=== PATIENT | female | born 1955 | race Caucasian/White ===

== ENCOUNTER 2017-08-05 00:39 | Emergency (ER) | payer BC ==
[~2017-08-05] VITALS: Ht 165.1 cm; Wt 93.0 kg
[2017-08-05] MEDS ORDERED: LISI20TA5 (00:59)
[2017-08-05] MEDS ORDERED: METFORMIN500 MG PO (01:02)
[2017-08-05] MEDS ORDERED: METFORMIN500 M2 PO (01:03)
[2017-08-05] MEDS ORDERED: CARVEDILOL25 MG PO (01:03)
[2017-08-05] MEDS ORDERED: SPIRONOLACTONE100 MG PO (01:04)
[2017-08-05] MEDS ORDERED: LASIX20 MG PO (01:05)
[2017-08-05] MEDS ORDERED: DIGOX125 MCG PO (01:05)
[2017-08-05] MEDS ORDERED: MAGNESIUM200 MG PO (01:06)
[2017-08-05] MEDS ORDERED: MULTIVITAMI9 PO (01:07)
[2017-08-05] MEDS ORDERED: COUMADIN6 MG PO ×2 (01:09→01:10)
[2017-08-05 02:00] LABS: HEMATOCRIT 43.5 % (37.0-47.0); HEMOGLOBIN 14.3 g/dl (12.0-16.0); IMMATURE GRANULOCYTES 0.4 % (0.0-1.0); MEAN CELL VOLUME 88.8 fL CALC (80.0-100.0); MEAN CORPUSCULAR HGB 29.2 pG CALC (26.0-32.0); MEAN CORPUSCULAR HGB CONC 32.9 g/L CALC (32.0-36.0); NEUT# 4.17 thou/uL (2.00-7.15); RED BLOOD COUNT 4.9 mill/uL (4.20-5.60); RED CELL DISTRI WIDTH 17.8 % (11.5-15.5)
[2017-08-05 02:20] LABS: ALBUMIN 3.7 g/dL (3.2-5.0); BILIRUBIN, TOTAL 1.4 mg/dL (0.0-1.4); CREATININE 1.4 mg/dL (0.5-1.0); POTASSIUM 4.1 mmol/l (3.5-5.1); TOTAL PROTEIN 6.7 g/dL (6.3-8.2)
[2017-08-05] MEDS ORDERED: CLINDAMYCIN300 M1 PO (05:09)
[2017-08-05 05:10] VITALS: BP 142/77
== END 2017-08-05 05:24 | disposition home or self-care (01) | DRG 301 ==
LOC: ED 00:39
PROVIDERS: Emergency Medicine
DX: I87.2 Venous insufficiency (chronic) (peripheral) (principal); I48.91 Unspecified atrial fibrillation; I10 Essential (primary) hypertension; R22.43 Localized swelling, mass and lump, lower limb, bilateral; Z79.01 Long term (current) use of anticoagulants

== ENCOUNTER 2020-09-16 20:18 | Observation (INO) | payer MEDICARE ==
[~2020-09-16] VITALS: Ht 165.1 cm; Wt 108.0 kg
[~2020-09-16 20:18] MED LIST: CARVEDILOL25 MG PO; CLINDAMYCIN300 M1 PO; COUMADIN6 MG PO; DIGOX125 MCG PO; LASIX20 MG PO; LISI20TA5; MAGNESIUM200 MG PO; METFORMIN500 M2 PO; METFORMIN500 MG PO; MULTIVITAMI9 PO; SPIRONOLACTONE100 MG PO
--- NOTE | 2020-09-16 20:20 | NUR ---
PT MOVED TO ROOM 10 BY EMS FOR TRIAGE
--- NOTE | 2020-09-16 20:21 | NUR ---
PT. TO ROOM 10 VIA EMS WITH C/O FEELING DIZZINESS STARTING YESTERDAY. SKIN WARM AND DRY TO TOUCH, COLOR WNL, RESP. EVEN AND UNLABORED. CRAFT ARTIST SHOWING A-FIB. NO C/O CP OR SOB OFFERED.
--- NOTE | 2020-09-16 20:55 | NUR ---
IV LOPRESSOR GIVEN PER MD ORDER.
[2020-09-16 21:01] LABS: HEMATOCRIT 40.6 % (37.0-47.0); HEMOGLOBIN 13.1 g/dl (12.0-16.0); IMMATURE GRANULOCYTES 0.8 % (0.0-5.0); MEAN CELL VOLUME 90.4 fL CALC (80.0-100.0); MEAN CORPUSCULAR HGB 29.2 pG CALC (26.0-32.0); MEAN CORPUSCULAR HGB CONC 32.3 g/dL CAL (32.0-36.0); NEUT# 15.18 thou/uL (2.00-7.15); RED BLOOD COUNT 4.49 mill/uL (4.20-5.60); RED CELL DISTRI WIDTH 13.2 % (11.5-15.5); URINE BILIRUBIN - DIPSTICK NEGATIVE (NEGATIVE); URINE BLOOD DIPSTICK LARGE (NEGATIVE); URINE COLOR YELLOW; URINE GLUCOSE - DIPSTICK NEGATIVE (NEGATIVE); URINE KETONE NEGATIVE (NEGATIVE); URINE PH 5.5 (4.5-8.0); URINE PROTEIN - DIPSTICK 100 mg/dL (NEG-TRACE); URINE SPECIFIC GRAVITY 1.025
[2020-09-16 21:02] LABS: URINE LEUK ESTERASE MODERATE (NEGATIVE); URINE NITRITE - DIPSTICK POSITIVE (Negative)
[2020-09-16 21:10] LABS: URINE BACTERIA MANY hpf; URINE WBC 20-50 WBC/hpf (0-5)
[2020-09-16 21:16] LABS: CREATININE 1.3 mg/dL (0.5-1.0); POTASSIUM 3.8 mmol/l (3.5-5.1)
[2020-09-16 21:19] LABS: ALBUMIN 4.5 g/dL (3.2-5.0); TOTAL PROTEIN 8.5 g/dL (6.3-8.2)
[2020-09-16 21:21] LABS: ACT PARTIAL THROMBO TIME 31.1 SECONDS (20.0-32.5); INTERNATIONAL NORMALIZED RATIO 1.9 RATIO (0.7-1.3); PROTHROMBIN TIME 19.4 SECONDS (9.0-12.5)
[2020-09-16 21:47] LABS: DIGOXIN 0.5 ng/mL (0.8-2.0)
--- NOTE | 2020-09-16 21:55 | NUR ---
HR REMAINS 108-115. MD AWARE.
[2020-09-16 22:01] LABS: TSH, 3RD GENERATION 1.24 uIU/mL (0.47 - 4.68)
--- NOTE | 2020-09-16 22:06 | NUR ---
IV LONOXIN GIVEN PER MD ORDER.
--- NOTE | 2020-09-16 22:21 | NUR ---
MD IN ROOM INFORMED PT. OF ADMISSION, VERBALIZED UNDERSTANDING.
--- NOTE | 2020-09-16 23:20 | NUR ---
Admission Note Report Given to: TIERNEY SOLIS Transported by: Wheelchair X Stretcher Transported with: X Nurse Transporter X Patent IV O2 Precipitate Washer Location: ICU X MS2
--- NOTE | 2020-09-16 23:20 | NUR ---
REPORT RECEIVED FROM ED NURSE. I ASKED THE ED NURSE IF THEY WERE BRINGING HER UP ON TELEMETRY DUE TO THE AFIB RVR UPON ARRIVING TO HOSPITAL EARLIER THIS EVENING AND CHF/XRAY RESULTS. I OBSERVED THE ED NURSE VERBALLY VIA PHONE TALKING TO ED PHYSICIAN REGARDING TELEMETRY, HE STATED "NO TELEMETRY." ED NURSE REPORTS HR IS CONTROLLED IN 70-80'S AT THIS TIME.
--- NOTE | 2020-09-16 23:21 | NUR ---
PT. TAKEN TO WI FLOOR VIA STRETCHER, NO C/O.
--- NOTE | 2020-09-16 23:30 | NUR ---
PT ARRIVED TO MED SURG VIA STRETCHER ACCOMPANIED BY ED NURSE. PT APPEARS TO BE IN STABLE CONDITION AT THIS TIME. SELF AMBULATED W/STANDBY ASSISTANCE TO RESTROOM AND TO THE BED. PT REPORTS THAT SHE FELL EARLIER IN THE DAY AT HOME, UNCERTAIN OF WHAT HAPPENED, BUT HAS SMALL SCRATCH TO HER RIGHT HAND. DENIES HITTING HER HEAD OR HAVING ANY OTHER INJURIES FROM FALLING. LUNG SOUNDS ARE CLEAR, HEART RATE 80-90, BP STABLE AT THIS TIME. PT REPORTS HAVING HISTORY OF CHF, SHE HAS 2+ EDEMA TO BLE. DENIES PAIN/N/V AT THIS TIME. PT IS ALSO AFEBRILE. ORIENTED PT TO THE ROOM, CALL SYSTEM, LIGHTS, BED AND TV. PROVIDED SANDWICH AND GINGERALE ALSO AT THIS TIME. CALL LIGHT AT SIDE AND PT ENCOURAGED TO CALL ANY NEEDS ARISE, VERBALIZED UNDERSTANDING.
[2020-09-17] VITALS: BP 140/83
--- NOTE | 2020-09-17 03:10 | NUR ---
PT CALLED ASKING FOR AN ADDITIONAL BLANKET/PROVIDED. DENIES ANY OTHER NEEDS. CALL LIGHT AT SIDE.
[2020-09-17 03:30] VITALS: BP 109/56
[2020-09-17 04:56] LABS: HEMATOCRIT 40.1 % (37.0-47.0); HEMOGLOBIN 12.8 g/dl (12.0-16.0); IMMATURE GRANULOCYTES 0.4 % (0.0-5.0); MEAN CELL VOLUME 91.8 fL CALC (80.0-100.0); MEAN CORPUSCULAR HGB 29.3 pG CALC (26.0-32.0); MEAN CORPUSCULAR HGB CONC 31.9 g/dL CAL (32.0-36.0); NEUT# 9.23 thou/uL (2.00-7.15); RED BLOOD COUNT 4.37 mill/uL (4.20-5.60); RED CELL DISTRI WIDTH 13.1 % (11.5-15.5)
[2020-09-17 05:22] LABS: CREATININE 1.1 mg/dL (0.5-1.0); POTASSIUM 3.9 mmol/l (3.5-5.1)
--- NOTE | 2020-09-17 06:36 | NUR ---
PT C/O COCCYX AREA FEELING SORE FROM FALLING YESTERDAY, SMALL AMOUNT OF BRUISING OBSERVED.
[2020-09-17] MEDS ORDERED: AMIODARONE200 MG PO (07:03)
[2020-09-17] MEDS ORDERED: LISINOPRIL10 MG PO (07:03)
[2020-09-17 07:20] VITALS: BP 90/53
--- NOTE | 2020-09-17 07:20 | NUR ---
PT LAYING IN BED. A&O X4. NO DISTRESS NOTED. PT REPORTS PAIN 8/10 DESCRIBED "THROBBING/ACHING" LOCATED IN HER LOWER BACK, DUE TO HER FALL THAT OCCURRED YESTERDAY. TYLENOL TO BE GIVEN PER PT REQUEST. EDEMA NOTED TO BLE; PER PT THIS IS "MY NORMAL" BUT NOT PITTING. CLEAR BREATH SOUNDS UPON AUSCULTATION. AQCTIVE BOWEL SOUNDS X4 QUADS. #20 EMS SITE TO RAC; TO BE CHANGED TODAY; HEALTHY AND PATENT. NO OTHER NEEDS AT THIS TIME. ASSESSMENT COMPLETED. CALL LIGHT WITHIN REACH.
--- NOTE | 2020-09-17 08:45 | NUR ---
IV OUT OF PLACE AND REMOVED. Greg GREENE NOTIFIED AND AWARE; PER AMBER HOLD OFF ON NEW IV INSERTION POSS DC TODAY.
--- NOTE | 2020-09-17 09:02 | NUR ---
DR KITTY BENITEZ APRN AT BEDSIDE DISCUSSING POC
[2020-09-17 09:16] VITALS: BP 100/62
[2020-09-17] MEDS ORDERED: METFORMIN500 M2 PO (11:02)
[2020-09-17] MEDS ORDERED: KEFLEX500 MG PO (11:03)
--- NOTE | 2020-09-17 12:45 | NUR ---
UPDATED PT ON D/C PLANNING. PER PT HER SON "WON'T BE ABLE TO PICK ME UP UNTIL 3PM". NO IV IN PLACE. FARM SPECIALIST AWARE. CALL LIGHT WITHIN REACH.
--- NOTE | 2020-09-17 16:58 | NUR ---
PT RECEIVED DISCHARGE INSTRUCTIONS AND VERBALIZED UNDERSTANDING. FAMILY BROUGHT BELONGINGS. IV SITE ALREADY TAKEN OUT. Discharge instructions given. Patient verbalizes understanding of same. Discharged in stable condition via Wheelchair to Home with family. All belongings sent with pt.
--- NOTE | 2020-09-18 08:56 | NUR ---
URINE CX RESULTS REPORTED TO DR TANG, CALLED IN NEW RX FOR CEFDINIR 300MG PO BID X7 TO SWETA BARROW, PT AWARE
--- NOTE | 2020-09-19 08:27 | NUR ---
BLOOD CX SHOWS BACILLUS SPECIES IN 1 BOTTLE, DEFINITE CONTAMINANT PER NARGIS IN MICRO. REPORTED TO EDUARDO, NO NEW ORDERS RECD
== END 2020-09-17 16:58 | disposition home or self-care (01) ==
LOC: ED 20:18 → ED-I 22:04 → ED 22:18 → MS2 22:19
PROVIDERS: Family Medicine; ADMIT Internal Medicine; ATTEND Internal Medicine
DX: N39.0 Urinary tract infection, site not specified (principal); I48.91 Unspecified atrial fibrillation; M53.3 Sacrococcygeal disorders, not elsewhere classified; I11.0 Hypertensive heart disease with heart failure; I50.9 Heart failure, unspecified; E11.9 Type 2 diabetes mellitus without complications; B96.20 Unspecified Escherichia coli [E. coli] as the cause of diseases classified elsewhere; W19.XXXA Unspecified fall, initial encounter; Z88.0 Allergy status to penicillin; Z79.01 Long term (current) use of anticoagulants; Z88.2 Allergy status to sulfonamides; Z86.711 Personal history of pulmonary embolism; Z20.822 Contact with and (suspected) exposure to COVID-19
CPT/HCPCS: G0378; J1160

== ENCOUNTER → 2021-01-12 | Outpatient (REF) | payer MEDICARE ==
[~2021-01-12] MED LIST changes: +AMIODARONE200 MG PO; +KEFLEX500 MG PO; +LISINOPRIL10 MG PO
[2021-01-12 12:04] LABS: INTERNATIONAL NORMALIZED RATIO 1.5 RATIO (0.7-1.3); PROTHROMBIN TIME 15.1 SECONDS (9.0-12.5)
== END | disposition home or self-care (01) ==
LOC: LAB 10:56
DX: I48.0 Paroxysmal atrial fibrillation (principal); Z79.01 Long term (current) use of anticoagulants

== ENCOUNTER 2021-03-04 21:32 | Observation (INO) | payer MEDICARE ==
[~2021-03-04] VITALS: Ht 165.1 cm; Wt 98.0 kg
[~2021-03-04 21:32] MED LIST changes: -COUMADIN6 MG PO; -SPIRONOLACTONE100 MG PO; +SPIRONOLACTONE50 MG PO; +WARFARIN6 MG PO
[2021-03-04 22:15] LABS: HEMOGLOBIN 15.3 g/dl (12.0-16.0); IMMATURE GRANULOCYTES 0.2 % (0.0-5.0); MEAN CELL VOLUME 92.3 fL CALC (80.0-100.0); MEAN CORPUSCULAR HGB 30.1 pG CALC (26.0-32.0); MEAN CORPUSCULAR HGB CONC 32.6 g/dL CAL (32.0-36.0); NEUT# 7.16 thou/uL (2.00-7.15); RED BLOOD COUNT 5.09 mill/uL (4.20-5.60); RED CELL DISTRI WIDTH 13.7 % (11.5-15.5)
[2021-03-04 22:25] LABS: URINE BILIRUBIN - DIPSTICK NEGATIVE (NEGATIVE); URINE BLOOD DIPSTICK SMALL (NEGATIVE); URINE COLOR YELLOW; URINE GLUCOSE - DIPSTICK NEGATIVE (NEGATIVE); URINE KETONE NEGATIVE (NEGATIVE); URINE LEUK ESTERASE TRACE (NEGATIVE); URINE PH 5.5 (4.5-8.0); URINE PROTEIN - DIPSTICK TRACE mg/dL (NEG-TRACE); URINE SPECIFIC GRAVITY >=1.030; URINE UROBILINOGEN - DIPSTICK 0.2 E.U./dL (0.2)
[2021-03-04 22:26] LABS: URINE NITRITE - DIPSTICK NEGATIVE (Negative)
[2021-03-04 22:30] LABS: PROTHROMBIN TIME 29.5 SECONDS (9.0-12.5)
[2021-03-04 22:40] LABS: URINE MUCUS FEW hpf (NONE-FEW); URINE SQUAMOUS EPITHELIAL CELL MANY EPI/hpf (0-FEW)
[2021-03-04 22:42] LABS: ALBUMIN 4.1 g/dL (3.2-5.0); ALKALINE PHOSPHATASE 93 u/l (38-126); ANION GAP 12 (6-22 (CALC)); BUN 14 mg/dL (8-23); BUN/CREATININE RATIO 15 (12-20 (CALC)); CARBON DIOXIDE 23 mmol/l (22-30); CHLORIDE 104 mmol/l (95-108); CREATININE 0.9 mg/dL (0.5-1.0); GFR > 60 ML/MIN (>=60 (CALC)); GFR FOR AFR.AMER. > 60 ML/MIN (>=60 (CALC)); MAGNESIUM 1.9 mg/dL (1.6-2.3); POTASSIUM 4.2 mmol/l (3.5-5.1); SGOT/AST 25 u/l (9-36); SODIUM 134 mmol/l (137-146); TOTAL PROTEIN 7.6 g/dL (6.3-8.2)
[2021-03-04 22:44] LABS: BILIRUBIN, TOTAL 1.8 mg/dL (0.0-1.4)
[2021-03-04 22:54] LABS: MYOGLOBIN 27 ng/mL (0 - 62)
[2021-03-04 23:12] LABS: TSH, 3RD GENERATION 1.17 uIU/mL (0.47 - 4.68)
[2021-03-05] VITALS (12 sets, daily range): BP systolic 91–120; BP diastolic 51–97
[2021-03-05] MEDS ORDERED: JARDIANCE25 MG PO (00:02)
[2021-03-05] MEDS ORDERED: METFORMIN500 M2 PO (07:26)
[2021-03-05] MEDS ORDERED: CARVEDILOL25 MG PO (09:45)
== END 2021-03-05 11:00 | disposition home or self-care (01) ==
LOC: ED 21:32 → ED-I 22:08 → ED 23:44 → ICU 23:45
PROVIDERS: Family Medicine; ADMIT Internal Medicine; ATTEND Internal Medicine
DX: I48.91 Unspecified atrial fibrillation (principal); I11.0 Hypertensive heart disease with heart failure; I50.9 Heart failure, unspecified; E11.9 Type 2 diabetes mellitus without complications; I95.9 Hypotension, unspecified; T50.2X6A Underdosing of carbonic-anhydrase inhibitors, benzothiadiazides and other diuretics, initial encounter; Z91.128 Patient's intentional underdosing of medication regimen for other reason; R79.1 Abnormal coagulation profile; T45.515A Adverse effect of anticoagulants, initial encounter; Z79.01 Long term (current) use of anticoagulants; Z79.84 Long term (current) use of oral hypoglycemic drugs

== ENCOUNTER 2021-06-26 08:20 | Observation (INO) | payer MEDICARE ==
[2021-06-26] VITALS (7 sets, daily range): BP systolic 90–120; BP diastolic 57–77
[~2021-06-26] VITALS: Ht 160 cm; Wt 106.0 kg
[~2021-06-26 08:20] MED LIST changes: +COREG25 MG PO; +JARDIANCE25 MG PO
--- NOTE | 2021-06-26 08:21 | NUR ---
PT TO ROOM VIA WC IN NO APPARENT DISTRESS
[2021-06-26 08:50] LABS: HEMATOCRIT 46.7 % (37.0-47.0); HEMOGLOBIN 14.2 g/dl (12.0-16.0); IMMATURE GRANULOCYTES 0.2 % (0.0-5.0); MEAN CELL VOLUME 96.7 fL CALC (80.0-100.0); MEAN CORPUSCULAR HGB 29.4 pG CALC (26.0-32.0); MEAN CORPUSCULAR HGB CONC 30.4 g/dL CAL (32.0-36.0); NEUT# 6.6 thou/uL (2.00-7.15); RED BLOOD COUNT 4.83 mill/uL (4.20-5.60); RED CELL DISTRI WIDTH 15.6 % (11.5-15.5)
[2021-06-26 09:08] LABS: ALBUMIN 4.1 g/dL (3.2-5.0); CREATININE 1.1 mg/dL (0.5-1.0); MAGNESIUM 2.2 mg/dL (1.6-2.3); POTASSIUM 4.5 mmol/l (3.5-5.1); TOTAL PROTEIN 7.3 g/dL (6.3-8.2)
[2021-06-26 09:12] LABS: BILIRUBIN, TOTAL 2.3 mg/dL (0.0-1.4)
[2021-06-26 09:23] LABS: PROTHROMBIN TIME 19.6 SECONDS (9.0-12.5)
[2021-06-26 10:56] LABS: URINE BLOOD DIPSTICK TRACE-INTACT (NEGATIVE); URINE COLOR YELLOW; URINE GLUCOSE - DIPSTICK >=1000 mg/dL (NEGATIVE); URINE KETONE NEGATIVE (NEGATIVE); URINE LEUK ESTERASE NEGATIVE (NEGATIVE); URINE PROTEIN - DIPSTICK 100 mg/dL (NEG-TRACE); URINE SPECIFIC GRAVITY >=1.030; URINE UROBILINOGEN - DIPSTICK 0.2 E.U./dL (0.2)
[2021-06-26 11:00] LABS: URINE BILIRUBIN - DIPSTICK NEGATIVE (NEGATIVE); URINE NITRITE - DIPSTICK NEGATIVE (Negative)
[2021-06-26 11:06] LABS: URINE RBC 0-2 RBC/hpf (0-5); URINE SQUAMOUS EPITHELIAL CELL MODERATE EPI/hpf (0-FEW)
--- NOTE | 2021-06-26 13:27 | NUR ---
REPORT RECIEVED FROM WILL COLE
--- NOTE | 2021-06-26 14:02 | NUR ---
Spoke to Ms. Gaming and verified her medications, when she last took them, and allergies
--- NOTE | 2021-06-26 14:05 | NUR ---
PT ARRIVED VIA WC WITH HIGH SCHOOL FOOTBALL COACH. PT A&OX3. ASSESSMENT ALLOWED AT THIS TIME. IV: 20G RAC SALINE LOCK. FLUSHED WITH NO RESISTANCE. FALL/SAFETY PERCAUTION IN PLACE. CALL LIGHT WITHIN REACH. EDEMA ON LOWER LEGS BILATERALLY +3-4. PT HAS PACEMAKER.
--- NOTE | 2021-06-26 16:15 | NUR ---
PT RESTING IN BED WITH EYES CLOSED. BREATHING IS EVEN AND UNLABORED. TELE MONITOR IS IN PLACE,CONTINOUS MONITORING PER ED. FALL/SAFETY PRECAUTIONS IN PLACE. CALL LIGHT IS WITHIN REACH.
--- NOTE | 2021-06-26 16:56 | NUR ---
GLUCOSE METER RESULT: 123
--- NOTE | 2021-06-26 20:00 | NUR ---
PT HELPED TO RESTROOM. EVEN AND UNLABORED RESPIRATIONS. IRREGULAR HEART SOUNDS UPON AUSCULTATION. TELEMETRY IN PLACE. IV SITE HEALTHY AND PATENT. ACTIVE BOWEL SOUNDS X4 QUADRANTS. BILATERAL EDEMA ON LOWER EXTREMITIES. PT DENIES PAIN AT THE MOMENT. SAFETY PRECAUTIONS IN PLACE. CALL LIGHT WITHIN REACH.
--- NOTE | 2021-06-27 00:40 | NUR ---
PT SLEEPING; NO DISTRESS NOTED. TELEMETRY AND SAFETY PECAUTIONS IN PLACE. CALL LIGHT WITHI REACH.
[2021-06-27 04:00] VITALS: BP 105/55
--- NOTE | 2021-06-27 04:40 | NUR ---
PT HELPED TO RESTROOM. NO SIGNS OF DISTRESS OR PAIN NOTED. EVEN AND UNLABORED RESPIRATIONS. TELEMETRY IN PLACE. CALL LIGHT WITHIN REACH.
[2021-06-27 06:11] LABS: HEMATOCRIT 44.5 % (37.0-47.0); HEMOGLOBIN 13.7 g/dl (12.0-16.0); MEAN CELL VOLUME 98.9 fL CALC (80.0-100.0); MEAN CORPUSCULAR HGB 30.4 pG CALC (26.0-32.0); MEAN CORPUSCULAR HGB CONC 30.8 g/dL CAL (32.0-36.0); RED BLOOD COUNT 4.5 mill/uL (4.20-5.60); RED CELL DISTRI WIDTH 15.4 % (11.5-15.5)
[2021-06-27 06:39] LABS: CREATININE 1.3 mg/dL (0.5-1.0)
[2021-06-27 06:43] LABS: CHOLESTEROL HDL RATIO 5.4 (<4.4 (CALC))
[2021-06-27 07:37] VITALS: BP 102/59
--- NOTE | 2021-06-27 07:53 | NUR ---
SHIFT CHANGE REPORT, PT AWAKE ALERT AND ORIENTED RESTING IN BED, NO C/O DISCOMFORT, TELE MONITOR IN PLACE, CALL HAND IN REACH AND BED LOCKED IN LOWEST POSITION.
[2021-06-27 10:50] VITALS: BP 116/69
[2021-06-27 11:08] LABS: PROTHROMBIN TIME 20.3 SECONDS (9.0-12.5)
--- NOTE | 2021-06-27 12:00 | NUR ---
RESTING IN BED, MEDICAL TEAM ROUNDED AND DISCUSSED PLAN OF CARE, ALL NEEDS ADDRESSED.
[2021-06-27 14:52] VITALS: BP 108/60
--- NOTE | 2021-06-27 16:01 | NUR ---
AMBULATES TO BR AT [facility], NO NEW COMPLAINS, ALL NEEDS ADDRESS, CALL HAND IN REACH.
--- NOTE | 2021-06-27 18:55 | NUR ---
REPORT RECEOED FROM Ish LEE RN
[2021-06-27 19:00] VITALS: BP 110/48
--- NOTE | 2021-06-27 19:15 | NUR ---
PT ASSEMENT COMPLETED AT THIS TIME.
[2021-06-28] VITALS: BP 86/53
--- NOTE | 2021-06-28 00:15 | NUR ---
PATIENT COMP[LAININ GOF IV FEELIN ITCHY. IV FLUSHED AND PATENTN WITH NO PAIN, PT WOULD LIKE ME TO RELOCATE IV, PT IS ITCHY TO TAPE NOT IV CATHETER ITSELF. REPLACED DRESSING.
[2021-06-28 04:00] VITALS: BP 91/53
--- NOTE | 2021-06-28 04:30 | NUR ---
PATIENT UP TO THE RESTROOM AT THIS TIME.L PT ABLE TO WALK UN ASSITED WITH SUPERVISION. CALL LIGHT AND BEDSIDE TABLE PLACED WITHIN REACH UPON RETURN.
[2021-06-28 04:56] LABS: HEMATOCRIT 41.7 % (37.0-47.0); MEAN CORPUSCULAR HGB 30.2 pG CALC (26.0-32.0); MEAN CORPUSCULAR HGB CONC 31.2 g/dL CAL (32.0-36.0); RED BLOOD COUNT 4.3 mill/uL (4.20-5.60); RED CELL DISTRI WIDTH 15.4 % (11.5-15.5)
[2021-06-28 05:12] LABS: CREATININE 1.1 mg/dL (0.5-1.0); MAGNESIUM 1.9 mg/dL (1.6-2.3); POTASSIUM 3.8 mmol/l (3.5-5.1)
[2021-06-28 05:18] LABS: INTERNATIONAL NORMALIZED RATIO 2.4 RATIO (0.7-1.3); PROTHROMBIN TIME 24.1 SECONDS (9.0-12.5)
[2021-06-28 07:43] VITALS: BP 100/76
--- NOTE | 2021-06-28 07:59 | NUR ---
SHIFT CHANGE REPORT, PT AWAKE ALERT AND ORIENTED RESTING IN BED NO C/O DISCOMFORT AT THIS TIME, STATES SHE HAS NOT HAD HER LASIX THIS AM AND HAS BEEN WAITING UP FOR IT BUT HS RN CAME TOO EARLY AT MINUTES AFTER 0300 AND TOLD HER IT WAS TOO EARLY TO GIVE BUT SHE WOULD RETURN. PT ALSO STATED RN DID NOT RETURN TO ADMINISTER LASIK AND NORMALLY SHE WOULD BE GIONG TO BR OFTEN TO URINATE BUT SHE HAS NOT BEEN ALL AM. NURSE INVESTIGATED IN COMPUTER AND SAW THAT LASIX WAS SCANNED @ 0538, INFORMED PT COMPUTER SHOWS MED WAS SCANNED AT THE TIME DOCUMENTED BUT PT INSISTED SHE DID NOT GET MED.
[2021-06-28 10:49] VITALS: BP 128/66
--- NOTE | 2021-06-28 12:26 | NUR ---
ATE MEAL AND RESTING IN BED, NO NEW CMPLAIN, WILL CONTINUE TO MONITOR.
--- NOTE | 2021-06-28 12:59 | NUR ---
RESTING IN BED NOW AFTER HAVING MEAL, ALL NEEDS ADDRESSED, PT STATES SHE WILL NOTIFY FAMILY TO PICK HER UP WHEN D/C COMPLETE.
--- NOTE | 2021-06-28 14:52 | NUR ---
Discharge instructions given. Patient verbalizes understanding of same. Discharged in stable condition via Wheelchair to Home with friend. All belongings sent with pt.
--- NOTE | 2021-07-03 10:20 | NUR ---
Post discharge pneumonia call completed today, 07.03.21, Pt. states she is doing well. No fever, chills, or SOB since discharge. Pt. resumed normal medication upon discharge. No new meds were prescribed. Follow up appt. with PCP is scheduled for this coming , 07/06/21. Pt. had no questions or concerns at this time.
== END 2021-06-28 14:51 | disposition home or self-care (01) ==
LOC: ED 08:20 → MS2 11:38
PROVIDERS: Emergency Medicine; Nurse Practitioner; ADMIT Internal Medicine; ATTEND Internal Medicine
DX: I13.0 Hypertensive heart and chronic kidney disease with heart failure and stage 1 through stage 4 chronic kidney disease, or unspecified chronic kidney disease (principal); I50.9 Heart failure, unspecified; E11.22 Type 2 diabetes mellitus with diabetic chronic kidney disease; N18.9 Chronic kidney disease, unspecified; I48.20 Chronic atrial fibrillation, unspecified; T50.1X6A Underdosing of loop [high-ceiling] diuretics, initial encounter; Z91.128 Patient's intentional underdosing of medication regimen for other reason; Z86.73 Personal history of transient ischemic attack (TIA), and cerebral infarction without residual deficits; Z87.01 Personal history of pneumonia (recurrent); Z79.01 Long term (current) use of anticoagulants; Z79.84 Long term (current) use of oral hypoglycemic drugs; Z20.822 Contact with and (suspected) exposure to COVID-19

== ENCOUNTER 2022-02-24 22:40 | Emergency (ER) | payer MEDICARE ==
[~2022-02-24] VITALS: Ht 160 cm; Wt 96.0 kg
[~2022-02-24 22:40] MED LIST changes: +LIPITOR80 M1 PO; +POTASSIUM99 MG PO
[2022-02-25 00:50] LABS: IMMATURE GRANULOCYTES 0.7 % (0.0-5.0); MEAN CELL VOLUME 93.7 fL CALC (80.0-100.0); MEAN CORPUSCULAR HGB 30.3 pG CALC (26.0-32.0); MEAN CORPUSCULAR HGB CONC 32.3 g/dL CAL (32.0-36.0); NEUT# 5.03 thou/uL (2.00-7.15); RED BLOOD COUNT 4.79 mill/uL (4.20-5.60); RED CELL DISTRI WIDTH 14.4 % (11.5-15.5)
[2022-02-25 01:01] LABS: HEMATOCRIT 44.9 % (37.0-47.0); HEMOGLOBIN 14.5 g/dl (12.0-16.0)
[2022-02-25 01:14] LABS: ALBUMIN 3.7 g/dL (3.2-5.0); CREATININE 1.4 mg/dL (0.5-1.0)
[2022-02-25 01:16] LABS: BILIRUBIN, TOTAL 2.6 mg/dL (0.0-1.4); TOTAL PROTEIN 6.1 g/dL (6.3-8.2)
[2022-02-25 03:20] LABS: URINE BILIRUBIN - DIPSTICK NEGATIVE (NEGATIVE); URINE COLOR YELLOW; URINE GLUCOSE - DIPSTICK NEGATIVE (NEGATIVE); URINE KETONE NEGATIVE (NEGATIVE); URINE PH 5.5 (4.5-8.0); URINE PROTEIN - DIPSTICK NEGATIVE (NEG-TRACE); URINE SPECIFIC GRAVITY 1.015
[2022-02-25 03:22] LABS: URINE BLOOD DIPSTICK NEGATIVE (NEGATIVE); URINE LEUK ESTERASE SMALL (NEGATIVE); URINE NITRITE - DIPSTICK NEGATIVE (Negative)
[2022-02-25 03:29] LABS: URINE EPITHELIAL CELLS MANY EPI/hpf (0-FEW)
[2022-02-25 03:30] LABS: URINE BACTERIA MODERATE hpf; URINE HYALINE CAST FEW lpf (NONE-RARE)
[2022-02-25] MEDS ORDERED: CIPROFLOXACN500 MG PO (03:40)
[2022-02-25 05:45] VITALS: BP 110/81
== END 2022-02-25 05:45 | disposition home or self-care (01) ==
LOC: ED 22:40
PROVIDERS: Emergency Medicine
DX: N39.0 Urinary tract infection, site not specified (principal); M79.89 Other specified soft tissue disorders; I11.0 Hypertensive heart disease with heart failure; I50.9 Heart failure, unspecified; E11.9 Type 2 diabetes mellitus without complications; I48.91 Unspecified atrial fibrillation; E78.00 Pure hypercholesterolemia, unspecified
CPT/HCPCS: J1956

== ENCOUNTER 2022-03-07 12:11 | Inpatient (IN) | payer MEDICARE ==
[2022-03-07] VITALS (8 sets, daily range): BP systolic 105–131; BP diastolic 48–88
[~2022-03-07] VITALS: Ht 160 cm; Wt 98.0 kg
[~2022-03-07 12:11] MED LIST changes: +CIPROFLOXACN500 MG PO
--- NOTE | 2022-03-07 12:15 | NUR ---
PT TO ROOM VIA WC
[2022-03-07] MEDS ORDERED: XARELTO10 MG PO (12:30)
[2022-03-07] MEDS ORDERED: SPIRONOLACTONE25 MG PO (12:31)
[2022-03-07 13:06] LABS: HEMATOCRIT 44.5 % (37.0-47.0); HEMOGLOBIN 14.3 g/dl (12.0-16.0); IMMATURE GRANULOCYTES 0.2 % (0.0-5.0); MEAN CELL VOLUME 93.1 fL CALC (80.0-100.0); MEAN CORPUSCULAR HGB 29.9 pG CALC (26.0-32.0); MEAN CORPUSCULAR HGB CONC 32.1 g/dL CAL (32.0-36.0); NEUT# 6.03 thou/uL (2.00-7.15); RED BLOOD COUNT 4.78 mill/uL (4.20-5.60); RED CELL DISTRI WIDTH 14.9 % (11.5-15.5)
[2022-03-07 13:16] LABS: ALBUMIN 3.8 g/dL (3.2-5.0); BILIRUBIN, TOTAL 2.2 mg/dL (0.0-1.4); CREATININE 1.2 mg/dL (0.5-1.0); POTASSIUM 3.5 mmol/l (3.5-5.1); TOTAL PROTEIN 6.5 g/dL (6.3-8.2)
--- NOTE | 2022-03-07 13:26 | NUR ---
Reassessment of patient completed. No distress noted.
--- NOTE | 2022-03-07 14:02 | NUR ---
Reassessment of patient completed. No distress noted.
--- NOTE | 2022-03-07 14:54 | NUR ---
monitored client to bedside comode. able to stand and ambulate without assistance
--- NOTE | 2022-03-07 15:02 | NUR ---
Reassessment of patient completed. No distress noted. assisted client with tv.
[2022-03-07 15:34] LABS: URINE BILIRUBIN - DIPSTICK NEGATIVE (NEGATIVE); URINE BLOOD DIPSTICK TRACE-INTACT (NEGATIVE); URINE COLOR YELLOW; URINE GLUCOSE - DIPSTICK >=1000 mg/dL (NEGATIVE); URINE KETONE NEGATIVE (NEGATIVE); URINE LEUK ESTERASE TRACE (NEGATIVE); URINE PH 5.5 (4.5-8.0); URINE PROTEIN - DIPSTICK TRACE mg/dL (NEG-TRACE)
[2022-03-07 15:40] LABS: URINE NITRITE - DIPSTICK NEGATIVE (Negative)
--- NOTE | 2022-03-07 19:20 | NUR ---
REPORT GIVEN BY WILL STEINBERG. PATIENT RESTING IN BED WATCHING TV. RESP EVEN AND UNLABORED. NO S/S OF DISTRESS NOTED. FALL AND SAFTEY PRECAUTIONS IN PLACE. IV SALINE LOCKED. PACED ON TELE. BLE EDEMA PRESENT. PLAN OF CARE DISCUSSED. PATIENT INFORMED TO CALL WITH ANY QUESTIONS OR CONCERNS.
--- NOTE | 2022-03-07 23:53 | NUR ---
PATIENT RESTING IN BED WITH EYES CLOSED. RESP EVEN AND UNLABORED. NO S/S OF DISTRESS NOTED. FALL AND SAFTEY PRECAUTIONS IN PLACE.
[2022-03-08 04:11] VITALS: BP 97/75
[2022-03-08 05:13] LABS: HEMATOCRIT 44.9 % (37.0-47.0); HEMOGLOBIN 14.5 g/dl (12.0-16.0); MEAN CELL VOLUME 92.6 fL CALC (80.0-100.0); MEAN CORPUSCULAR HGB 29.9 pG CALC (26.0-32.0); MEAN CORPUSCULAR HGB CONC 32.3 g/dL CAL (32.0-36.0); RED BLOOD COUNT 4.85 mill/uL (4.20-5.60); RED CELL DISTRI WIDTH 14.9 % (11.5-15.5)
[2022-03-08 05:42] LABS: CREATININE 1.1 mg/dL (0.5-1.0); MAGNESIUM 2.2 mg/dL (1.6-2.3); POTASSIUM 3.2 mmol/l (3.5-5.1)
--- NOTE | 2022-03-08 07:00 | NUR ---
RECEIVE REPORT FROM DENNIS SOLIS.
[2022-03-08 07:29] VITALS: BP 120/63
--- NOTE | 2022-03-08 08:00 | NUR ---
PATIENT ALERT AND ORIENTED X3. STABLE AT THIS TIME. ASSESSMENT HEAD-TO TOE IS COMPLETE. PATIENT IS EDUCATED ABOUD MEDICATIONS AND NURSING PLAN FOR TODAY. SAFETY AND FALL PRECAUTIONS IN PLACE. CALL LIGHT WITHIN IN REACH.
[2022-03-08 11:14] VITALS: BP 124/70
--- NOTE | 2022-03-08 12:00 | NUR ---
PATIENT RESTING PLEASANT IN THE BED. STABLE AT THIS TIME.
[2022-03-08 15:31] VITALS: BP 116/60
--- NOTE | 2022-03-08 16:00 | NUR ---
PATIENT RESTING STABLE AT THIS TIME. ANY PAIN OR DISCOMFORT. SAFETY AND FALL PRECAUTIONS IN PLACE. CALL LIGHT WITHIN IN REACH.
[2022-03-08 19:00] VITALS: BP 102/62
--- NOTE | 2022-03-08 20:00 | NUR ---
PT ALERT AND ORIENTED, FOLLOWING COMMANDS. PTS SITTING UP AT THIS TIME. PTS LOWER EXTREMITIES HIGHLY EDEMATOUS. DISCUSSED GOALS TO MONITOR INPUT AND OUTPUT, THEN WEIGHT IN THE MORNING. PTS VITAL SIGNS ARE WITHIN NORMAL LIMITS. PT DENIES PAIN. SAFETY PRECAUTIONS ARE IN PLACE. PT BEING CLOSELY MONITORED.
--- NOTE | 2022-03-08 22:00 | NUR ---
SHIFT REASSESSMENT - PTS DAUGHTER PAM CALLED. RECEIVED APPROVAL FROM PT TO GIVE PAM AN UPDATE. UPDATE PROVIDED. PAM REPORTS THAT PT BELEIVES SHE WILL BE DISCHARGED TOMORROW AND THERE HAS BEEN SIGNIFICANT IMPOVEMENT IN HER EDEMA SINCE SHE ARRIVED. I INFORMED PAM THAT THERE HAS NOT BEEN ANY DOCUMENTATION FROM THE PHYSICIAN REGARDING PLAN TO DISCHARGE TOMORROW. PAM WILL FOLLOW UP TOMORROW, SHE IS CONCERNED THAT PT MAY SIGNS HERSELF OUT. WILL REPORT HER CONCERNS TO NURSE TAKING OVER PTS CARE IN THE MORNING.
[2022-03-08 23:36] VITALS: BP 103/73
[2022-03-09] VITALS (7 sets, daily range): BP systolic 88–118; BP diastolic 41–85
--- NOTE | 2022-03-09 | NUR ---
SHIFT REASSESSMENT - PT RESTING COMFORTABLY AT THIS TIME. NO CHANGE IN PT STATUS AT THIS TIME. PT DENIES PAIN. WILL CONTINUE TO MONITOR CLOSELY.
--- NOTE | 2022-03-09 02:00 | NUR ---
SHIFT REASSESSMENT - NO CHANGE IN PTS STATUS SINCE PREVIOUS ASSESSMENT. PT BEING CLOSELY MONITORED. CALL LIGHT AND PERSONAL BELONINGS WITHIN REACH.
--- NOTE | 2022-03-09 04:00 | NUR ---
SHIFT REASSESSMENT - PT HAD SEVERAL RUNGS OF VTACH. HR RATE BACK TO NORMAL RATE. VITAL SIGNS ARE WITHIN NORMAL LIMITS. PT BEING CLOSELY MONITORED.
[2022-03-09 06:20] LABS: CREATININE 1.1 mg/dL (0.5-1.0); MAGNESIUM 2.2 mg/dL (1.6-2.3)
[2022-03-09 06:29] LABS: POTASSIUM 4.4 mmol/l (3.5-5.1)
--- NOTE | 2022-03-09 06:55 | NUR ---
SHIFT REASSESSMENT - PT ALERT AND ORIENTED. SITTING UP AT THE END OF HER BED. PT DENIES ANY PAIN OR DISTRESS. VITAL SIGNS ARE WITHIN NORMAL LIMITS. PTS CALL LIGHT WITHIN REACH. PT BEING CLOSELY MONITORED.
--- NOTE | 2022-03-09 07:00 | NUR ---
RECEIVE REPORT FROM JOSE SOLIS.
--- NOTE | 2022-03-09 09:18 | NUR ---
RECIEVED PATIENT FROM NURSE, I WILL BE TAKING OVER CARE FOR PATIENT. INTRODUCED MYSELF TO PATIENT TO ENSURE THAT SHE IS AWARE WHO IS NURSE IS. PATIENT IS AOX3, IN BED RESTING WATCHING TV. FAMILY AT BEDSIDE. DENIES ANY DISTRESS. NO SXS OF DISCOMFORT. CALL LIGHT AND BESIDE TABLE WITHIN REACH OF PATIENT. ADVISED TO CALL IF SHE NEEDS ANYTHING. PATIENT VERBALIZED UNDERSTANDING.
--- NOTE | 2022-03-09 09:32 | NUR ---
PATIENT ALERTA AND ORIENTED X3. RESTING IN BED STABLE AT THIS TIME. ASSESSMENT HEAD-TO-TOE COMPLETE. MORNING MEDICATIONS DONE. REPORT GIVEN TO IDRIS SOLIS. FOR CONTINUE CARE.
--- NOTE | 2022-03-09 11:09 | NUR ---
GOT CALL FROM TELE THAT PATIENT WENT 41 BEATS OF VTACH AND SELF CONVERTED BACK TO AFIB. ASSESSED PATIENT, PATIENT IS ASYMPTOMATIC. ELECTROLYTE LEVELS WITHIN NORMAL RANGE. MD AND COUNCIL ON AGING DIRECTOR MADE AWARE. TELE SCRIPT PRINTED AND GIVEN TO .
--- NOTE | 2022-03-09 12:00 | NUR ---
PATIENT IS RESTING IN BED. DENIES ANY DISCOMFORT OR DISTRESS. NO SXS OF DISTRESS. CALL LIGHT AND BEDSIDE TABLE WITH IN REACH OF PATIENT. ADVISED TO CALL IF NEEDING ANYTHING. PATIENT VERBALIZED UNDERSTANDING AGREEMENT.
--- NOTE | 2022-03-09 16:00 | NUR ---
PATIENT IS SITTING UP IN BED WATCHING TV. PATIENT DENIES ANY SXS OF DISTRESS. CALL LIGHT AND BEDSIDE TABLE ARE WITH IN REACH. ADVISED TO CALL IF NEEDING ANYTHING. PATIENT VERBALIZED UNDERSTANDING.
--- NOTE | 2022-03-09 19:08 | NUR ---
GAVE REPORT TO COLLEGE SCOUTING COORDINATOR NURSE FOR CONTINUED CARE. NO QUESTIONS NOR CONCERNS FROM RECIEVING NURSE AT THIS TIME.
--- NOTE | 2022-03-09 19:45 | NUR ---
Patient sitting in recliner with legs elevated. No signs of pain or distress.
[2022-03-10] VITALS (10 sets, daily range): BP systolic 95–128; BP diastolic 61–93
--- NOTE | 2022-03-10 02:16 | NUR ---
Patient sleeping in recliner with legs elevated. I wrapped the patients legs with solange bandage per physican. No complaints or signs of distress.
[2022-03-10 05:27] LABS: HEMATOCRIT 44.5 % (37.0-47.0); HEMOGLOBIN 14.5 g/dl (12.0-16.0); MEAN CELL VOLUME 92.9 fL CALC (80.0-100.0); MEAN CORPUSCULAR HGB 30.3 pG CALC (26.0-32.0); MEAN CORPUSCULAR HGB CONC 32.6 g/dL CAL (32.0-36.0); RED BLOOD COUNT 4.79 mill/uL (4.20-5.60); RED CELL DISTRI WIDTH 14.9 % (11.5-15.5)
[2022-03-10 05:42] LABS: CREATININE 1.1 mg/dL (0.5-1.0); MAGNESIUM 2.1 mg/dL (1.6-2.3); POTASSIUM 4.1 mmol/l (3.5-5.1)
--- NOTE | 2022-03-10 08:00 | NUR ---
PT SITTING ON SIDE OF BED, PT DENIES ANY COMPLAINTS, PT IN NO DISTRESS, WILL CONTINUE TO MONITOR
--- NOTE | 2022-03-10 12:00 | NUR ---
PT EATING LUNCH AND SITTING ON THE SIDE OF THE BED, PT DENIES ANY COMPLAINTS, PT IN NO DISTRESS, WILL CONTINUE TO MONITOR.
--- NOTE | 2022-03-10 16:25 | NUR ---
PT IN NO DISTRESS, PT CONVERSING ON PHONE, WILL CONTINUE TO MONITOR.
[2022-03-11] VITALS (12 sets, daily range): BP systolic 77–134; BP diastolic 41–82
--- NOTE | 2022-03-11 00:58 | NUR ---
PT ALERT, ORIENTED X3, ABLE TO MAKE NEEDS KNOWN. HR-IRREGULAR, PT DENIES CHEST PAIN, PRESSURE. TELEMETRY IN PLACE. LUNG SOUNDS CLEAR, PT STATES SOB WITH EXERTION. PT O2 SATS 95 ON RA. 4PLUS PITTING EDEMA NOTED TO BILAT LEGS. BILAT LEGS WRAPPED WITH LYDIA WRAP PER PT REQUEST. ABD SOFT, NONTENDER, BT PRESENT, PT DENIES NAUSEA. PT STATES SHE HAD A BM ON 03/09/22. PT VOIDING ADEQUATE AMOUNT OF ABILIO URINE. PT DENIES PAIN. PT RESTING IN NO SIGN OF DISCOMFORT, WILL CONTINUE TO MONITOR.
--- NOTE | 2022-03-11 04:21 | NUR ---
Pt sleeping in recliner with legs elevated, call light and bedside table next to chair. Pt sleeping in no sign of discomfort. Will continue to monitor.
--- NOTE | 2022-03-11 07:45 | NUR ---
REPORT RECEIVED FROM NIGHT NURSE. PT SITTING UP ON THE SIDE OF THE BED; ALERT AND ORIENTED X 3. DENIES PAIN; RESPIRATIONS EVEN AND UNLABORED ON ROOM AIR. C/O SOB WITH EXERTION; SPO2 96%. DRY COUGH NOTED; PT STATES SHE HAS HAD THIS SINCE SHE GOT HER FLU SHOT. BLE WRAPPED WITH LYDIA WRAPS; ENCOURAGED ELEVATION, BUT PT REQUESTS TO REMAIN SITTING ON EDGE BED AT THIS TIME WITH LEGS DEPENDENT. TELEMETRY IN PLACE. IV SITE APPEARS HEALTHY AND FLUSHES. PLAN OF CARE REVIEWED; PT ENCOURAGED TO VERBALIZE CONCERNS. STATES UNDERSTANDING; CLARIFIES FLUIDS RESTRICTION AND REQUESTS HOME HEALTH; MESSAGE GIVEN TO CASE MANAGEMENT. SAFETY MEASURES IN PLACE; CALL LIGHT WITHIN REACH.
--- NOTE | 2022-03-11 09:04 | NUR ---
DR. TANG AT BEDSIDE TO DISCUSS PLAN OF CARE. PT IS INDEPENDENT TO BATHROOM FOR FREQUENT VOIDS.
--- NOTE | 2022-03-11 12:00 | NUR ---
RESTING ON COUCH BY THE WINDOW WITH BLE ELEVATED. ACEWRAPS INTACT TO BLE.
--- NOTE | 2022-03-11 14:30 | NUR ---
IV SITE TO RIGHT HAND LEAKING AND DUE TO BE CHANGED; SITE DC'D AND NEW IV STARTED TO RAC. LASIX GIVEN THROUGH NEW, HEALTHY IV.
--- NOTE | 2022-03-11 20:00 | NUR ---
RECEIVED REPORT FROM NURSE JOCELINE, PATIENT SITTING IN BED, TALKING ON THE PHONE, ALERT ORINTED ABLE TO MAKE NEEDS KNONW, AMBULATORY, SALINE LOCK ON RTAC PATENT FLSUHES WELL, HOOKED ON TELEMETRY, OCCASIONAL COUGH NOTED, ACTIBEVE BOWLE SOUNDS, EDEMA NOTED ON BLE LEGS WRAP WITH LYDIA WRAP, DENIES PAIN AT THIS TIME,CALL LIGHT AT REACH.
[2022-03-12] VITALS (8 sets, daily range): BP systolic 88–114; BP diastolic 42–87
--- NOTE | 2022-03-12 00:40 | NUR ---
BP MANUALLY RECHECKED 90/58MMHG
--- NOTE | 2022-03-12 04:00 | NUR ---
PATIENT RESTING IN BED, EYES CLOSED, BREATHING EVEN UNLABORED, CALL LIGHT IN REACH.
[2022-03-12 05:06] LABS: HEMATOCRIT 44.9 % (37.0-47.0); HEMOGLOBIN 14.3 g/dl (12.0-16.0); IMMATURE GRANULOCYTES 0.1 % (0.0-5.0); MEAN CELL VOLUME 92.6 fL CALC (80.0-100.0); MEAN CORPUSCULAR HGB 29.5 pG CALC (26.0-32.0); MEAN CORPUSCULAR HGB CONC 31.8 g/dL CAL (32.0-36.0); NEUT# 6.06 thou/uL (2.00-7.15); RED BLOOD COUNT 4.85 mill/uL (4.20-5.60); RED CELL DISTRI WIDTH 14.7 % (11.5-15.5)
[2022-03-12 05:39] LABS: ANION GAP 16 (6-22 (CALC)); BUN 23 mg/dL (8-23); BUN/CREATININE RATIO 23 (12-20 (CALC)); CARBON DIOXIDE 26 mmol/l (22-30); CHLORIDE 97 mmol/l (95-108); GFR FOR AFR.AMER. > 60 ML/MIN (>=60 (CALC)); GFR OTHER RACES 55 ML/MIN (>=60 (CALC)); POTASSIUM 3.8 mmol/l (3.5-5.1); SODIUM 136 mmol/l (137-146)
--- NOTE | 2022-03-12 06:08 | NUR ---
due lasix given this morning,bilat solange wraps applied.
--- NOTE | 2022-03-12 07:19 | NUR ---
BEDSIDE REPORT DONE. PT AWAKE SITTING ON SIDE OF BED WITH LEFT LEG ON BED AND RIGHT LEG DANGLING ON SIDE OF BED. NO C/O PAIN VOICED NO S/S NOTED.
--- NOTE | 2022-03-12 12:20 | NUR ---
RECEIVE REPORT FROM VILMA SOLIS. PATIENT STABLE RESTING IN BED. CONTINUE PLAN OF CARE.
--- NOTE | 2022-03-12 16:16 | NUR ---
PATIENT IS RESTING IN BED. STABLE AT THIS TIME. SAFETY AND FALL PRECAUTIONS IN PLACE. CALL LIGHT WITHIN IN REACH. HOURLY ROUNDS CONTINUE.
--- NOTE | 2022-03-12 20:00 | NUR ---
PATIENT SITTING UP IN BED-AWAKE ALERT AND ORIENTEDX3. PATIENT WITH SEVERE BLE SWELLING. BLE ARE WRAPPED WITH LYDIA WRAPS. STILL WITH 4+ EDEMA TO LEGS. ENCOURAGED ELEVATION. TELE MONITOR IN PLACE. SALINE LOCK TO RAC INTACT AND HEALTHY WITH GOOD BLOOD RETURN. LUNGS ARE CLEAR. ABD IS SOFT WITH ACTIVE BS. VOIDING QS YELLOW URINE IN BR. SAFETY PRECAUTIONS REINFORCED. CALL LIGHT IN REACH. WILL CONT TO MONITOR.
--- NOTE | 2022-03-12 21:00 | NUR ---
MEDS WERE HELD FOR HR-53 AND BP OF 102/42. COREG AND CODERONE. GLUCOSE MONITOR WAS 195-COVERED WITH HUMALOG 1UNITS SQ PER SS COVERAGE PROTOCOL. HS SNACK PROVIDED. LYDIA WRAPS RFEMOVED FROM BLE FOR SLEEP. ENCOURAGE ELEVATION WHEN IN BED. SAFETY PRECAUTIONS REINFORCED. CALL LIGH IN REACH. WILL CONT TO MONITOR.
[2022-03-13] VITALS (7 sets, daily range): BP systolic 95–115; BP diastolic 46–85
--- NOTE | 2022-03-13 | NUR ---
PATIENT UP TO THE BR AND VOMITTED APPROX 100CC OF FLUID. MEDICATED WITH ZOFRAN 4MG IVP FOR N/V. PROVIDED WITH COOL CLOTH FOR FACE. CALL LIGHT IN REACH. WILL CONT TO MONITOR.
--- NOTE | 2022-03-13 05:03 | NUR ---
PATIENT RESTING IN BED-EYES ARE CLOSED AND RESPS ARE EVEN AND UNLABORED. POSITIONED ON LEFT SIDE. TELE MONITOR IN PLACE. SALINE LOCK TO RAC INTACT. CALL LIGHT IN REACH. WILL CONT TO MONITOR.
[2022-03-13 06:35] LABS: CREATININE 1.2 mg/dL (0.5-1.0); POTASSIUM 3.8 mmol/l (3.5-5.1)
--- NOTE | 2022-03-13 07:38 | NUR ---
RECEIVE REPORT FROM MICHELINE. PATIENT RESTING IN BED STABLE AT THIS TIME.
--- NOTE | 2022-03-13 08:00 | NUR ---
PATIENT ALERTA AND ORIENTED X3. RESTING IN BED STABLE AT THIS TIME. ASSESSMENT HEAD-TO-TOE COMPLETE. PATIENT IS EDUCATED ABOUD MEDICATIONS AND NURSING PLAN FOR TODAY. PT REFER UNDERSTAND. SAFETY AND FALL PRECAUTIONS IN PLACE. CALL LIGHT WITHIN IN REACH. USED THIS MORNING THE DIGITAL SLINDING SCALE FOR WEIGH PT ACCORDING MEDICAL ORDER.
--- NOTE | 2022-03-13 12:00 | NUR ---
PATIENT RESTING SEAT IN BED-EYES ARE CLOSED AND RESPS ARE EVEN AND UNLABORED. POSITIONED ON LEFT SIDE. TELE MONITOR IN PLACE. SALINE LOCK TO RAC INTACT. CALL LIGHT IN REACH. WILL CONT TO MONITOR.
--- NOTE | 2022-03-13 16:22 | NUR ---
PATIENT STABLE AT THIS TIME RESTING IN BED. HOURLY ROUDS FOR FALL PRECAUTIONS AND PT SATISFACTION.
--- NOTE | 2022-03-13 20:00 | NUR ---
PATIENT SITTING UP IN BED AT THIS TIME-AWAKE ALERT AND ORIENTEDX3. PATIENT CONT TO HAVE SEVERE BLE SWELLING-4+. AGAIN ENCOURAGED PATIENT TO KEEP LE ELEVATED WHEN POSSIBLE. SALINE LOCK TO RAC INTACT. TELE MONITOR IN PLACE-PACED/A-FIB 70'S. LUNGS ARE CLEAR BUT PATIENT IS SOB WITH LITTLE OR NO EXHERSION. PATIENT VOIDEING CLEAR YELLOW URINE IN BR-400CC AT THIS TIME. STRICT I&O MAINTAINED. PATIENT STATES THAT SHE DID HAVE BM TODAY. ABD IS SOFT WITH ACTIVE BS. SAFETY PRECAUTIONS REINFORCED. CALL LIGHT IN REACH. WILL CONT TO MONITOR.
--- NOTE | 2022-03-14 00:18 | NUR ---
PATIENT RESTING IN BED POSITIONED ON RIGHT SIDE-EYES ARE CLOSED. RESPS ARE EVEN AND UNLABORED. TELE MONITOR IN PLACE. CALL LIGHT IN REACH. WILL CONT TO MONITOR.
[2022-03-14 04:00] VITALS: BP 130/69
--- NOTE | 2022-03-14 04:00 | NUR ---
PATIENT SITTING UP IN BED WITH EYES CLOSED. RESPS ARE EVEN AND UNLABORED. TELE MONITOR IN PLACE-LAST READING WAS A-FIB 63. SALINE LOCK TO RAC INTACT. CALL LIGHT IN REACH. WILL CONT TO MONTIOR.
[2022-03-14 05:19] VITALS: BP 101/63
[2022-03-14 05:59] LABS: CREATININE 1.3 mg/dL (0.5-1.0); MAGNESIUM 1.9 mg/dL (1.6-2.3); POTASSIUM 3.6 mmol/l (3.5-5.1)
--- NOTE | 2022-03-14 07:00 | NUR ---
RECEIVE REPORT FROM MICHELINE SOLIS. PATIENT RESTING IN BED STABLE AT THIS TIME. PATIENT IS EDUCATED ABOUD MEDICATIONS AND NURSING PLAN FOR TODAY. PT REFER UNDERSTAND. SAFETY AND FALL PRECAUTIONS IN PLACE. CALL LIGHT WITHIN IN REACH.
[2022-03-14] MEDS ORDERED: XARELTO15 MG PO (10:17)
[2022-03-14] MEDS ORDERED: CORDARONE/200 MG/TAB PO (10:17)
[2022-03-14 10:32] VITALS: BP 112/75
[2022-03-14 11:41] VITALS: BP 112/75
--- NOTE | 2022-03-14 12:00 | NUR ---
PATIENT RESTING IN BED WITH EYE CLOSE. PT DISCHARGE IS EDUCATED ABOUD CONTINUE MEDICATIONS AT HOME AND DOCTOR FOLLOW UP. PATIENT REFER UNDERSTAND.
--- NOTE | 2022-03-14 14:12 | NUR ---
Discharge instructions given. Patient verbalizes understanding of same. Discharged in stable condition via Wheelchair to Home with staff. All belongings sent with pt.
== END 2022-03-14 14:11 | disposition home health service (06) | DRG 291 ==
LOC: ED 12:11 → ED-I 14:10 → ED 14:28 → MS2 14:29
PROVIDERS: Emergency Medicine; Internal Medicine; ADMIT Internal Medicine; ATTEND Internal Medicine
DX: I13.0 Hypertensive heart and chronic kidney disease with heart failure and stage 1 through stage 4 chronic kidney disease, or unspecified chronic kidney disease (principal); I50.23 Acute on chronic systolic (congestive) heart failure; I48.92 Unspecified atrial flutter; I48.19 Other persistent atrial fibrillation; N18.9 Chronic kidney disease, unspecified; I42.0 Dilated cardiomyopathy; E11.9 Type 2 diabetes mellitus without complications; I34.0 Nonrheumatic mitral (valve) insufficiency; I27.20 Pulmonary hypertension, unspecified; E78.00 Pure hypercholesterolemia, unspecified; Z23 Encounter for immunization; Z79.01 Long term (current) use of anticoagulants; Z86.73 Personal history of transient ischemic attack (TIA), and cerebral infarction without residual deficits; Z95.810 Presence of automatic (implantable) cardiac defibrillator; Z86.711 Personal history of pulmonary embolism

== ENCOUNTER 2022-03-27 14:11 | Emergency (ER) | payer MEDICARE ==
[~2022-03-27] VITALS: Ht 160 cm; Wt 98.6 kg
[~2022-03-27 14:11] MED LIST changes: +CORDARONE/200 MG/TAB PO; +SPIRONOLACTONE25 MG PO; +XARELTO10 MG PO; +XARELTO15 MG PO
[2022-03-27 15:03] LABS: HEMOGLOBIN 14.4 g/dl (12.0-16.0); IMMATURE GRANULOCYTES 0.2 % (0.0-5.0); MEAN CELL VOLUME 90.9 fL CALC (80.0-100.0); MEAN CORPUSCULAR HGB 29.1 pG CALC (26.0-32.0); NEUT# 3.49 thou/uL (2.00-7.15); RED BLOOD COUNT 4.95 mill/uL (4.20-5.60); RED CELL DISTRI WIDTH 15.3 % (11.5-15.5)
[2022-03-27 15:50] LABS: ALBUMIN 4.2 g/dL (3.2-5.0); CREATININE 1.2 mg/dL (0.5-1.0); POTASSIUM 3.7 mmol/l (3.5-5.1)
[2022-03-27 17:36] VITALS: BP 99/64
== END 2022-03-27 19:11 | disposition home or self-care (01) ==
LOC: ED 14:11
PROVIDERS: Emergency Medicine
DX: I89.0 Lymphedema, not elsewhere classified (principal); I11.0 Hypertensive heart disease with heart failure; I50.9 Heart failure, unspecified; I48.91 Unspecified atrial fibrillation; E11.9 Type 2 diabetes mellitus without complications; E78.00 Pure hypercholesterolemia, unspecified; Z95.810 Presence of automatic (implantable) cardiac defibrillator

== ENCOUNTER 2022-04-10 22:24 | Inpatient (IN) | payer MEDICARE ==
[~2022-04-10] VITALS: Ht 162.6 cm; Wt 99.0 kg
[2022-04-10 23:22] LABS: IMMATURE GRANULOCYTES 0.1 % (0.0-5.0); MEAN CELL VOLUME 88.5 fL CALC (80.0-100.0); MEAN CORPUSCULAR HGB 28.8 pG CALC (26.0-32.0); MEAN CORPUSCULAR HGB CONC 32.5 g/dL CAL (32.0-36.0); NEUT# 6.57 thou/uL (2.00-7.15); RED BLOOD COUNT 4.52 mill/uL (4.20-5.60); RED CELL DISTRI WIDTH 15.5 % (11.5-15.5)
[2022-04-10] MEDS ORDERED: DOXYCYCLINE100 MG PO (23:40)
[2022-04-10 23:44] LABS: ALBUMIN 3.9 g/dL (3.2-5.0); BILIRUBIN, TOTAL 4.1 mg/dL (0.0-1.4); CREATININE 1.9 mg/dL (0.5-1.0); POTASSIUM 4.6 mmol/l (3.5-5.1); TOTAL PROTEIN 6.6 g/dL (6.3-8.2)
[2022-04-11] VITALS (70 sets, daily range): BP systolic 75–137; BP diastolic 28–108
[2022-04-11 01:09] LABS: URINE BILIRUBIN - DIPSTICK NEGATIVE (NEGATIVE); URINE BLOOD DIPSTICK SMALL (NEGATIVE); URINE COLOR YELLOW; URINE GLUCOSE - DIPSTICK >=1000 mg/dL (NEGATIVE); URINE KETONE NEGATIVE (NEGATIVE); URINE LEUK ESTERASE SMALL (NEGATIVE); URINE NITRITE - DIPSTICK NEGATIVE (Negative); URINE PH 5.5 (4.5-8.0); URINE PROTEIN - DIPSTICK 30 mg/dL (NEG-TRACE); URINE SPECIFIC GRAVITY 1.025
[2022-04-11 01:12] LABS: URINE BACTERIA MODERATE hpf; URINE EPITHELIAL CELLS MANY EPI/hpf (0-FEW); URINE FINE GRAN CAST FEW lpf; URINE MUCUS FEW hpf (NONE-FEW)
[2022-04-11 01:13] LABS: URINE COARSE GRANULAR CAST FEW lpf
[2022-04-12] VITALS (51 sets, daily range): BP systolic 70–114; BP diastolic 49–83
[2022-04-12 06:09] LABS: HEMATOCRIT 43.1 % (37.0-47.0); HEMOGLOBIN 13.7 g/dl (12.0-16.0); MEAN CELL VOLUME 91.1 fL CALC (80.0-100.0); MEAN CORPUSCULAR HGB CONC 31.8 g/dL CAL (32.0-36.0); RED BLOOD COUNT 4.73 mill/uL (4.20-5.60); RED CELL DISTRI WIDTH 15.9 % (11.5-15.5)
[2022-04-12 06:32] LABS: MAGNESIUM 2.2 mg/dL (1.6-2.3)
[2022-04-12 06:35] LABS: CREATININE 1.6 mg/dL (0.5-1.0); POTASSIUM 4.6 mmol/l (3.5-5.1)
[2022-04-13] VITALS (32 sets, daily range): BP systolic 82–107; BP diastolic 49–72
[2022-04-13 06:35] LABS: HEMATOCRIT 42.2 % (37.0-47.0); HEMOGLOBIN 13.4 g/dl (12.0-16.0); MEAN CELL VOLUME 89.6 fL CALC (80.0-100.0); MEAN CORPUSCULAR HGB 28.5 pG CALC (26.0-32.0); MEAN CORPUSCULAR HGB CONC 31.8 g/dL CAL (32.0-36.0); RED BLOOD COUNT 4.71 mill/uL (4.20-5.60); RED CELL DISTRI WIDTH 15.6 % (11.5-15.5)
[2022-04-13 06:52] LABS: ALBUMIN 3.3 g/dL (3.2-5.0); BILIRUBIN, TOTAL 2.6 mg/dL (0.0-1.4); CREATININE 1.5 mg/dL (0.5-1.0); POTASSIUM 3.8 mmol/l (3.5-5.1); TOTAL PROTEIN 5.9 g/dL (6.3-8.2)
[2022-04-14] VITALS (9 sets, daily range): BP systolic 81–116; BP diastolic 55–82
[2022-04-14 06:07] LABS: HEMATOCRIT 40.6 % (37.0-47.0); HEMOGLOBIN 12.7 g/dl (12.0-16.0); MEAN CELL VOLUME 89.2 fL CALC (80.0-100.0); MEAN CORPUSCULAR HGB 27.9 pG CALC (26.0-32.0); MEAN CORPUSCULAR HGB CONC 31.3 g/dL CAL (32.0-36.0); RED BLOOD COUNT 4.55 mill/uL (4.20-5.60); RED CELL DISTRI WIDTH 15.6 % (11.5-15.5)
[2022-04-14 06:29] LABS: ALBUMIN 3.2 g/dL (3.2-5.0); CREATININE 1.3 mg/dL (0.5-1.0); MAGNESIUM 1.8 mg/dL (1.6-2.3); POTASSIUM 3.7 mmol/l (3.5-5.1)
[2022-04-15] VITALS (10 sets, daily range): BP systolic 97–121; BP diastolic 57–92
[2022-04-15 05:26] LABS: HEMATOCRIT 39.6 % (37.0-47.0); HEMOGLOBIN 12.9 g/dl (12.0-16.0); IMMATURE GRANULOCYTES 0.5 % (0.0-5.0); MEAN CELL VOLUME 88.8 fL CALC (80.0-100.0); MEAN CORPUSCULAR HGB 28.9 pG CALC (26.0-32.0); MEAN CORPUSCULAR HGB CONC 32.6 g/dL CAL (32.0-36.0); NEUT# 3.21 thou/uL (2.00-7.15); RED BLOOD COUNT 4.46 mill/uL (4.20-5.60); RED CELL DISTRI WIDTH 15.6 % (11.5-15.5)
[2022-04-15 05:36] LABS: CREATININE 1.3 mg/dL (0.5-1.0); MAGNESIUM 1.7 mg/dL (1.6-2.3); POTASSIUM 3.6 mmol/l (3.5-5.1)
[2022-04-16] VITALS (7 sets, daily range): BP systolic 88–130; BP diastolic 56–82
[2022-04-16 05:48] LABS: ALBUMIN 3.2 g/dL (3.2-5.0); CREATININE 1.3 mg/dL (0.5-1.0); POTASSIUM 3.6 mmol/l (3.5-5.1)
[2022-04-16 07:03] LABS: ALBUMIN 3.2 g/dL (3.2-5.0); BILIRUBIN, TOTAL 2.9 mg/dL (0.0-1.4); DIRECT BILIRUBIN 0.6 mg/dl (0.0-0.3); TOTAL PROTEIN 5.8 g/dL (6.3-8.2)
[2022-04-17] VITALS (8 sets, daily range): BP systolic 93–136; BP diastolic 50–75
[2022-04-17 05:59] LABS: HEMATOCRIT 41.5 % (37.0-47.0); HEMOGLOBIN 13.5 g/dl (12.0-16.0); MEAN CELL VOLUME 88.1 fL CALC (80.0-100.0); MEAN CORPUSCULAR HGB 28.7 pG CALC (26.0-32.0); MEAN CORPUSCULAR HGB CONC 32.5 g/dL CAL (32.0-36.0); RED BLOOD COUNT 4.71 mill/uL (4.20-5.60); RED CELL DISTRI WIDTH 15.7 % (11.5-15.5)
[2022-04-17 06:12] LABS: ALBUMIN 3.3 g/dL (3.2-5.0); BILIRUBIN, TOTAL 2.9 mg/dL (0.0-1.4); CREATININE 1.3 mg/dL (0.5-1.0); MAGNESIUM 1.6 mg/dL (1.6-2.3); POTASSIUM 3.2 mmol/l (3.5-5.1); TOTAL PROTEIN 6.2 g/dL (6.3-8.2)
[2022-04-18] VITALS (8 sets, daily range): BP systolic 101–127; BP diastolic 55–92
[2022-04-18 06:21] LABS: ALBUMIN 3.4 g/dL (3.2-5.0); CREATININE 1.3 mg/dL (0.5-1.0); MAGNESIUM 1.7 mg/dL (1.6-2.3); POTASSIUM 3.7 mmol/l (3.5-5.1)
[2022-04-19 00:25] VITALS: BP 102/68
[2022-04-19 05:13] VITALS: BP 108/75
[2022-04-19 05:47] LABS: HEMATOCRIT 47.2 % (37.0-47.0); HEMOGLOBIN 14.8 g/dl (12.0-16.0); MEAN CELL VOLUME 91.5 fL CALC (80.0-100.0); MEAN CORPUSCULAR HGB 28.7 pG CALC (26.0-32.0); MEAN CORPUSCULAR HGB CONC 31.4 g/dL CAL (32.0-36.0); RED BLOOD COUNT 5.16 mill/uL (4.20-5.60); RED CELL DISTRI WIDTH 16.3 % (11.5-15.5)
[2022-04-19 06:21] LABS: DIGOXIN 1.1 ng/mL (0.8-2.0)
[2022-04-19 06:45] VITALS: BP 112/86
[2022-04-19 08:05] LABS: ALBUMIN 3.7 g/dL (3.2-5.0); CREATININE 1.3 mg/dL (0.5-1.0); TOTAL PROTEIN 6.6 g/dL (6.3-8.2)
[2022-04-19] MEDS ORDERED: MIDODRINE10 MG PO (09:15)
[2022-04-19] MEDS ORDERED: DIGOXIN0.125 MG PO (09:17)
[2022-04-19] MEDS ORDERED: POTASSIUM CHLO20 MEQ PO (09:18)
[2022-04-19] MEDS ORDERED: TOPROL XL50 MG PO (09:18)
[2022-04-19] MEDS ORDERED: BUMETANIDE2 MG PO (09:19)
[2022-04-19 10:09] VITALS: BP 99/72
== END 2022-04-19 16:02 | DRG 291 ==
LOC: ED 22:24 → ED-I 04-11 01:11 → ED 04-11 01:53 → ICU 04-11 01:54 → MS2 04-13 13:06
PROVIDERS: Emergency Medicine; Internal Medicine; Internal Medicine Nephrology; ADMIT Internal Medicine; ATTEND Internal Medicine
DX: I13.0 Hypertensive heart and chronic kidney disease with heart failure and stage 1 through stage 4 chronic kidney disease, or unspecified chronic kidney disease (principal); I50.21 Acute systolic (congestive) heart failure; I50.23 Acute on chronic systolic (congestive) heart failure; E87.1 Hypo-osmolality and hyponatremia; N39.0 Urinary tract infection, site not specified; N17.9 Acute kidney failure, unspecified; L03.115 Cellulitis of right lower limb; L03.116 Cellulitis of left lower limb; L97.819 Non-pressure chronic ulcer of other part of right lower leg with unspecified severity; I48.21 Permanent atrial fibrillation; I50.22 Chronic systolic (congestive) heart failure; I48.91 Unspecified atrial fibrillation; E86.9 Volume depletion, unspecified; E11.22 Type 2 diabetes mellitus with diabetic chronic kidney disease; N18.30 Chronic kidney disease, stage 3 unspecified; I95.9 Hypotension, unspecified; E87.6 Hypokalemia; R74.8 Abnormal levels of other serum enzymes; I89.0 Lymphedema, not elsewhere classified; M19.90 Unspecified osteoarthritis, unspecified site; E78.00 Pure hypercholesterolemia, unspecified; B95.2 Enterococcus as the cause of diseases classified elsewhere; Z87.01 Personal history of pneumonia (recurrent); Z20.822 Contact with and (suspected) exposure to COVID-19; Z86.73 Personal history of transient ischemic attack (TIA), and cerebral infarction without residual deficits; Z79.01 Long term (current) use of anticoagulants; Z79.84 Long term (current) use of oral hypoglycemic drugs
CPT/HCPCS: J1160; J1956; S0073

== ENCOUNTER 2022-05-05 13:36 | Inpatient (IN) | payer MEDICARE ==
[~2022-05-05] VITALS: Ht 162.6 cm; Wt 83.3 kg
[~2022-05-05 13:36] MED LIST changes: +BUMETANIDE2 MG PO; +DIGOXIN0.125 MG PO; +DOXYCYCLINE100 MG PO; +MIDODRINE10 MG PO; +POTASSIUM CHLO20 MEQ PO; +TOPROL XL50 MG PO
[2022-05-05 13:43] VITALS: BP 115/80
--- NOTE | 2022-05-05 13:45 | NUR ---
PT ARRIVED VIA EMS, STATES SHE FELL SATURDAY AND HAS PAIN TO RIGHT KNEE AND TAILBONE
[2022-05-05 14:03] VITALS: BP 115/76
--- NOTE | 2022-05-05 14:04 | NUR ---
PT ASKED MD IF SHE COULD DRINK ANGEL ERICA, MD SAID YES. ANGEL ERICA GIVEN
[2022-05-05 14:20] LABS: BASO% 0.3 % (0-3); EOS% 1.7 % (0-8); HEMATOCRIT 50.3 % (37.0-47.0); HEMOGLOBIN 16.1 g/dl (12.0-16.0); IMMATURE GRANULOCYTES 0.1 % (0.0-5.0); LYMPH% 25.6 % (15-41); MEAN CELL VOLUME 89.2 fL CALC (80.0-100.0); MEAN CORPUSCULAR HGB 28.5 pG CALC (26.0-32.0); NEUT# 4.64 thou/uL (2.00-7.15); NEUT% 65.3 % (42-76); RED BLOOD COUNT 5.64 mill/uL (4.20-5.60); RED CELL DISTRI WIDTH 19.3 % (11.5-15.5)
--- NOTE | 2022-05-05 14:33 | NUR ---
UA COLLECTED. EXCORIATION TO PELVIC AND BUTTOCK AREA. CLEANED AND PLACED LOTION ON PT
[2022-05-05 14:38] LABS: ALBUMIN 3.9 g/dL (3.2-5.0); ALKALINE PHOSPHATASE 146 u/l (38-126); ANION GAP 15 (6-22 (CALC)); BILIRUBIN, TOTAL 3.3 mg/dL (0.0-1.4); BUN 30 mg/dL (8-23); BUN/CREATININE RATIO 20 (12-20 (CALC)); CARBON DIOXIDE 28 mmol/l (22-30); CHLORIDE 99 mmol/l (95-108); CREATININE 1.5 mg/dL (0.5-1.0); GFR FOR AFR.AMER. 42 ML/MIN (>=60 (CALC)); GFR OTHER RACES 35 ML/MIN (>=60 (CALC)); POTASSIUM 4.3 mmol/l (3.5-5.1); SGOT/AST 47 u/l (9-36); SODIUM 137 mmol/l (137-146); TOTAL PROTEIN 7.6 g/dL (6.3-8.2)
--- NOTE | 2022-05-05 14:57 | NUR ---
PT STILL IN RADIOLOGY, UNABLE TO GIVE ANTIBIOTIC AT THIS TIME
[2022-05-05 14:59] LABS: URINE BLOOD DIPSTICK TRACE-INTACT (NEGATIVE); URINE COLOR YELLOW; URINE GLUCOSE - DIPSTICK NEGATIVE (NEGATIVE); URINE KETONE NEGATIVE (NEGATIVE); URINE LEUK ESTERASE NEGATIVE (NEGATIVE); URINE PROTEIN - DIPSTICK 30 mg/dL (NEG-TRACE); URINE UROBILINOGEN - DIPSTICK 0.2 E.U./dL (0.2)
[2022-05-05 15:01] LABS: URINE BILIRUBIN - DIPSTICK SMALL (NEGATIVE); URINE NITRITE - DIPSTICK NEGATIVE (Negative)
[2022-05-05 15:08] LABS: URINE RBC 0-2 RBC/hpf (0-5); URINE SQUAMOUS EPITHELIAL CELL MODERATE EPI/hpf (0-FEW); URINE WBC 0-2 WBC/hpf (0-5)
[2022-05-05] MEDS ORDERED: OMEPRAZOLE DR40 MG (15:45)
[2022-05-05] MEDS ORDERED: XARELTO20 MG PO (15:47)
[2022-05-05 16:01] VITALS: BP 90/69
--- NOTE | 2022-05-05 16:24 | NUR ---
PT REQUESTED TO URINATE ON BEDSIDE COMMODE. PT WAS ABLE TO STAND ON OWN AND GET ONTO BEDSIDE COMMODE WITHOUT HELP.
[2022-05-05 16:32] VITALS: BP 112/82
--- NOTE | 2022-05-05 17:00 | NUR ---
PATIENT ADMITTED FROM ED, TRANSPORTED VIA STRETCHER. ALERT AND ORIENTED X4. VSS. NORMAL SALINE BOLUS BEGIN IN RIGHT AC. ORIENTED TO ROOM AND INSTRUCTED ON USE OF EQUIPMENT. PATIENT DENIES PAIN AT THIS TIME, NO CONCERNS EXPRESSED. CALL LIGHT WITHIN REACH.
[2022-05-05 17:11] VITALS: BP 102/70
--- NOTE | 2022-05-05 17:15 | NUR ---
Admission Note Report Given to: WILL ESCUDERO Transported by: Wheelchair X Stretcher Transported with: X Nurse Transporter X Patent IV O2 X Treasury Accountant Location: ICU X MS2 TO ROOM 272 WITH PERSONAL BELONGINGS
--- NOTE | 2022-05-05 21:00 | NUR ---
PT IN BED RESTING, WATCHING TV, ASSESMENT COMPLETED. DENIES PAIN OR DISCOMFORT. NO S/S OF DISTRESS NOTED. CALL LIGHT IN REACH AND BED IN LOWEST POSITION.
[2022-05-05 23:47] VITALS: BP 110/86
[2022-05-06] VITALS (9 sets, daily range): BP systolic 98–123; BP diastolic 53–84
--- NOTE | 2022-05-06 00:30 | NUR ---
PT IM BED AWAKE WATCHING TV. DENIES PAIN OR DISCOMFORT. NO S/S OF DISTRESS NOTED. CALL LIGHT IN REACH AND BED IN LOWEST POSITION.
--- NOTE | 2022-05-06 04:10 | NUR ---
PT IN BED RESTING WITH EYES CLOSED. BREATHING EVEVN AND UNLABORED. NO S/S OF DISTRESS NOTED. CALL LIGHT IN REACH AND BED IN LOWEST POSITION.
--- NOTE | 2022-05-06 05:02 | NUR ---
Pt refused daily weight when asked this morning, Pt wanted to do daily weight later on in the day.
--- NOTE | 2022-05-06 07:00 | NUR ---
REPORT FROM MUKUND MEDEIROS. ASSUMED PT CARE.
--- NOTE | 2022-05-06 09:40 | NUR ---
ASSISTED PT X1 ASSIST OOB TO BSC. PT TOLERATED WELL AND WAS STEADY ON FEET AT THIS TIME. NO APPARENT DISTRESS NOTED. PT DENIES ANY PAIN OR DISCOMFORT. CALL LIGHT WITHIN REACH. PT WILL CALL WHEN FINISHED ON BSC.
--- NOTE | 2022-05-06 09:45 | NUR ---
ASSISTED POC OFF BSC. PT BACK INTO BED AT THIS TIME.
--- NOTE | 2022-05-06 10:45 | NUR ---
DR. LUIS AT BEDSIDE TO DISCUSS POC.
[2022-05-06 12:22] LABS: ALBUMIN 3.6 g/dL (3.2-5.0); BILIRUBIN, TOTAL 2.8 mg/dL (0.0-1.4); CREATININE 1.4 mg/dL (0.5-1.0); POTASSIUM 4.3 mmol/l (3.5-5.1); TOTAL PROTEIN 7.2 g/dL (6.3-8.2)
[2022-05-06 12:23] LABS: BASO% 0.5 % (0-3); EOS% 2.9 % (0-8); HEMATOCRIT 46.3 % (37.0-47.0); HEMOGLOBIN 14.8 g/dl (12.0-16.0); LYMPH% 27.5 % (15-41); MEAN CELL VOLUME 88.7 fL CALC (80.0-100.0); MEAN CORPUSCULAR HGB 28.4 pG CALC (26.0-32.0); MONO% 7.8 % (2-13); NEUT# 4.07 thou/uL (2.00-7.15); NEUT% 61.3 % (42-76); RED BLOOD COUNT 5.22 mill/uL (4.20-5.60); RED CELL DISTRI WIDTH 18.9 % (11.5-15.5)
[2022-05-06] MEDS ORDERED: LASIX 40 MG TAB40 MG PO (12:32)
--- NOTE | 2022-05-06 14:38 | NUR ---
PROVIDED UPDATE TO DAUGHTER CRYSTAL TO GIVEN UPDATE REQUESTED. DISCUSSED PLAN TO STAY TONIGHT AND BE EVALUATED BY PT/OT AND DISCUSS CONCERNS WITH HOME MEDICATIONS. DAUGHTER STATES SOMEONE WILL BRING CURRENT LIST OF MEDICATIONS FOR REVIEW.
--- NOTE | 2022-05-06 15:28 | NUR ---
ORDERS RECEIVED TO CONTINUE HOME MEDICATIONS. ORDERS SENT TO [facility] AT THIS TIME.
--- NOTE | 2022-05-06 20:20 | NUR ---
PT IN BED RESTING WATCHING TV. DENIES PAIN OR DISCOMFORT. NO S/S OF DISTRESS NOTED. ASSESMENT COMPLETED. CALL LIGHT IN REACH AND BED IN LOWEST POSITION.
[2022-05-07] VITALS (7 sets, daily range): BP systolic 100–125; BP diastolic 69–89
--- NOTE | 2022-05-07 01:31 | NUR ---
I GIVE REPORT TO Ena DOVER LPN.
--- NOTE | 2022-05-07 01:37 | NUR ---
PATIENT RESTING IN BED WITH BOTH LEGS HANGING OFF THE BED-NEW IV SITE PLACES TO RIGHT UPPER CHEST-#22 GUAGE WITH GOOD BLOOD RETURN. REPORT GIVEN TO PRIMARY NURSE. WILL CONT TO MONITOR.
--- NOTE | 2022-05-07 02:40 | NUR ---
melatonin 3mg po given per request for sleep.
--- NOTE | 2022-05-07 04:00 | NUR ---
telemetry report rec'd per ayala saab pvcs hr 82
[2022-05-07 05:23] LABS: BASO% 0.2 % (0-3); EOS% 1.8 % (0-8); HEMATOCRIT 46.8 % (37.0-47.0); HEMOGLOBIN 14.8 g/dl (12.0-16.0); IMMATURE GRANULOCYTES 0.2 % (0.0-5.0); LYMPH% 30.4 % (15-41); MEAN CELL VOLUME 90.5 fL CALC (80.0-100.0); MEAN CORPUSCULAR HGB 28.6 pG CALC (26.0-32.0); MEAN CORPUSCULAR HGB CONC 31.6 g/dL CAL (32.0-36.0); MONO% 7.7 % (2-13); NEUT# 3.88 thou/uL (2.00-7.15); NEUT% 59.7 % (42-76); RED BLOOD COUNT 5.17 mill/uL (4.20-5.60)
[2022-05-07 05:38] LABS: ALBUMIN 3.4 g/dL (3.2-5.0); BILIRUBIN, TOTAL 2.4 mg/dL (0.0-1.4); CREATININE 1.3 mg/dL (0.5-1.0); POTASSIUM 4.5 mmol/l (3.5-5.1); TOTAL PROTEIN 6.6 g/dL (6.3-8.2)
--- NOTE | 2022-05-07 08:03 | NUR ---
PT RESTING COMFORTABLY VITAL SIGNS STABLE. NO NEEDS AT THIS TIME. PT RESTING IN CHAIR.
--- NOTE | 2022-05-07 12:05 | NUR ---
PT RESTING COMFORTABLY. VITAL SIGNS STABLE. NO NEEDS AT THIS TIME.
--- NOTE | 2022-05-07 16:01 | NUR ---
PT RESTING IN RECLINER WITH FAMILY IN ROOM. VITAL SIGNS STABLE. NO NEEDS AT THIS TIME.
--- NOTE | 2022-05-08 00:16 | NUR ---
pt had an O2 of 89 @2338 and showed confusion. nurse aris notified @2340.
--- NOTE | 2022-05-08 00:19 | NUR ---
Reassessed pt and o2 sat 91% room air. Some labored breathing noted but pt denies SOB. Placed on 2lnc of oxygen and HOB elevated. Pt noted with non productive cough and lung sounds are clear in upper lung moody and diminished in lower lung moody. Labored breathing improved after administering oxygen therapy. HOB elevated and will continue to observe.
[2022-05-08 04:13] VITALS: BP 117/75
--- NOTE | 2022-05-08 05:23 | NUR ---
pt has a temp of 99.9 @5829. Nurse notified @8306.
[2022-05-08 06:21] VITALS: BP 105/72
--- NOTE | 2022-05-08 06:43 | NUR ---
MADE AWARE THAT PT WAS PLACED ON OXYGEN DURING THE NIGHT AND HAS EXPIRATORY WHEEZING NOTED IN LUNG MITCHELL THIS AM. JVD NOTED ON LEFT SIDE OF NECK AND +3 EDEMA NOTED IN BILAT LOWER EXTREMITIES. NEW ORDERS NOTED FOR LAB WORK AND REPEAT OF CHEST XRAY. PT REMOVED OXYGEN THERAPY AND O2 SAT 95%^ ROOM AIR. wILL CONTINUE TO OBSERVE
[2022-05-08 07:56] LABS: CREATININE 1.3 mg/dL (0.5-1.0); MAGNESIUM 2.2 mg/dL (1.6-2.3); POTASSIUM 4.1 mmol/l (3.5-5.1)
[2022-05-08 07:57] LABS: HEMATOCRIT 43.7 % (37.0-47.0); HEMOGLOBIN 14.7 g/dl (12.0-16.0); MEAN CELL VOLUME 86.4 fL CALC (80.0-100.0); MEAN CORPUSCULAR HGB 29.1 pG CALC (26.0-32.0); MEAN CORPUSCULAR HGB CONC 33.6 g/dL CAL (32.0-36.0); RED BLOOD COUNT 5.06 mill/uL (4.20-5.60); RED CELL DISTRI WIDTH 18.5 % (11.5-15.5)
[2022-05-08 08:16] VITALS: BP 105/72
--- NOTE | 2022-05-08 09:23 | NUR ---
CALLED WOUND CARE SPOKE TO CHIKIS STATED THEY RECEIVED THE CONSULTATION WILL BE THIS AFTERNOON SOMETIME TO SEE THE PT.
[2022-05-08 11:31] VITALS: BP 116/78
[2022-05-08 12:09] VITALS: BP 116/78
[2022-05-08 18:57] VITALS: BP 105/67
--- NOTE | 2022-05-08 20:15 | NUR ---
PT NOTED LAYING IN BED OM RT SIDE TOWARDS BED RAIL. PT IS A/O TO NAME BUT CONFUSED AND DISORIENTED TO PLACE AND TIME. PT HAS NASAL CANNULA IN PLACE AT 2L O2, PUREWICK IN PLACE WITH BRIEF ON. PT ASSESSMENT COMPLATED AND IV ON RT CLAVICLE APPEARS HEALTHY. GROSS PITTING EDEMA PRESENT IN BLE. LE WRAPPED WITH COMPRESSION WRAP. PEDAL PULSES WEAK. PT BUTTOCKS SHOWS SIGNS OF REDNESS. PT DENIES ANY PAIN AT THIS TIME. CALL LIGHT WITHIN REACH AND SAFETY PRECAUTIONS IN PLACE.
--- NOTE | 2022-05-08 23:50 | NUR ---
PT IN BED REQUESTED TO USE BEDPAN. PT PUT ON BEDPAN WITH X2 ASSIST TO ROLL. PT STILL SHOWING SIGNS OF CONFUSION AND DISORIENTATION. PT ENCOURAGED TO USE CALL LIGHT WHEN FINISHED. SAFETY PRECAUTIONS IN PLACE.
[2022-05-09] VITALS (84 sets, daily range): BP systolic 71–128; BP diastolic 47–89
--- NOTE | 2022-05-09 00:36 | NUR ---
LOGISTICS MANAGER CALLED TO BEDSIDE. PT PALE AND RESPIRATIONS LABORED. O2 81% ON ROOM AIR, 4L NC APPLIED.EXPIRATORY WHEEZING NOTED.BP AND HR WNL. DR GARCIA INFORMED OF PT STATUS. STAT ABG AND CHEST XRAY ORDER. PT REMAINS RESTING IN SEMI FOWLERS POSITION.
--- NOTE | 2022-05-09 00:36 | NUR ---
LICENSED OCCUPATIONAL THERAPIST CALLED TO BEDSIDE. PT PALE AND RESPIRATIONS LABORED. O2 81% ON ROOM AIR, 4L NC APPLIED.EXPIRATORY WHEEZING NOTED.BP AND HR WNL. PT A/OX3. ASNWERS QUESTIONS BUT APPEARS LESS RESPONSIVE. PT STATES THAT NOTHING IS WRONG. DR GARCIA INFORMED OF PT STATUS. STAT ABG AND CHEST XRAY ORDER. PT REMAINS RESTING IN SEMI FOWLERS POSITION.
--- NOTE | 2022-05-09 01:05 | NUR ---
0105- GLUCOSE RESULTING IN 24. D50 PUSH ADMINISTERED. 0110- REASSESSMENT OF GLUOCSE RESULTING IN 222. RESPIRATIONS REMAINS LABORED. PT REMAINS A/OX3 AND STATES NOTHING IN WRONG. PT SLIGHTLY MORE RESPONSIVE. 0129- LAB AT BEDSIDE FOR STAT LABS
[2022-05-09 01:34] LABS: BASO% 0.4 % (0-3); HEMOGLOBIN 15.8 g/dl (12.0-16.0); IMMATURE GRANULOCYTES 1.9 % (0.0-5.0); LYMPH% 24.6 % (15-41); MEAN CELL VOLUME 91.2 fL CALC (80.0-100.0); MEAN CORPUSCULAR HGB 28.4 pG CALC (26.0-32.0); MEAN CORPUSCULAR HGB CONC 31.2 g/dL CAL (32.0-36.0); MONO% 15.9 % (2-13); NEUT# 2.69 thou/uL (2.00-7.15); NEUT% 57.2 % (42-76); RED BLOOD COUNT 5.56 mill/uL (4.20-5.60); RED CELL DISTRI WIDTH 19.2 % (11.5-15.5)
[2022-05-09 01:37] LABS: HEMATOCRIT 50.7 % (37.0-47.0)
[2022-05-09 01:44] LABS: ALBUMIN 3.7 g/dL (3.2-5.0); CREATININE 1.8 mg/dL (0.5-1.0); TOTAL PROTEIN 7.2 g/dL (6.3-8.2)
[2022-05-09 01:45] LABS: POTASSIUM 5.4 mmol/l (3.5-5.1)
--- NOTE | 2022-05-09 01:53 | NUR ---
GLUOCSE LAB RESULTING IN 139. ERICA INFORMED OF CHEST XRAY AND LABS RESULTS. INFORMED OF GLUCOSE AND D50 ADMINISTRATION. ORDER TO CONTINUE MONITORING PT. ORDERS FOR Q1 GLUCOSE CHECK FOR NEXT 4 HOURS. ORDERS TO ADMINISTER D50 IF NEEDED. RESPIRATIONS SHALLOW O2 SAT WNL ON 4L NC. #22G FESTUS PATENT. PT MORE ALERT, AWAKENS WHEN NAME CALLED. DIP GUIDER STOVES TO REMAIN AT BEDSIDE.
--- NOTE | 2022-05-09 02:26 | NUR ---
REASSESSMENT OF GLUCOSE AT THIS TIME RESULTING IN 80. BP 87/66, HR 86. REPEAT 71/47, HR 95. RESPIRATIONS REMAINS SHALLOW. DR GARCIA INFORMED OF PT STATUS. ORDERS TO TRANSFER TO ICU ON DOPAMINE DRIP AND Q1H GLUCOSE MONITORING. PT TRANSFERED TO ICU BED 5. REPORT GIVEN TO WILL ROWELL
--- NOTE | 2022-05-09 03:10 | NUR ---
PATIENT RECEIVED FROM MED/SURG AT THIS TIME VIA BED. PATIENT ALERT AND ORIENTED AT THIS TIME. PATIENT BP IS 110/68. DR. GARCIA CALLED AND ORDERS GIVEN TO HANG D10 AT 50MLS PER/HR AND TO SEND ORDER OVER FOR DOPAMINE DRIP BUT NOT TO HANG UNLESS PATIENT BP DROPS IN THE LOW 90'S SUSTAINED. PATIENT MOANS CONSTIANTLY YET DENIES PAIN. BILATERAL LEGS ARE 4+ EDEMA WIHT COMPRESSION STOCKING ON RIGHT LEG AND LEFT LEG HAS SEEPING CLEAR LIQUID FROM CALF. SIDERAILS UP HEART MONITOR SHOWING AFIB AND HR OF 85 WILL CONTINUE TO MONTIOR.
--- NOTE | 2022-05-09 03:10 | NUR ---
MAYORGA CATH INSERTED BY SOAP DRIER TENDER. PT TOLERATED WELL. MINIMAL URINE OUTPUT.
--- NOTE | 2022-05-09 04:16 | NUR ---
PATIENT LAYING IN BED AT THIS TIME ALERT AND ORIENTED X 3 BLOOD GLUECOSE IS SHOWINGN 62 AND IS INCREASING FROM LAST CHECK. BP AT THIS TIME IS 106/65 O2 ON AT 4L SPO2 IS CURRENTLY 97% WILL CONTINUE TO MONITOR
--- NOTE | 2022-05-09 05:19 | NUR ---
PATIENT BLOOD GLUCOSE AT THIS TIME IS 167 BP IS CURRENTLY 99/67 02 REMAINS ON 4L AND SPO2 IS CURRENTLY 100% WILL CONTINUE TO FOLLOW.
[2022-05-09 05:53] LABS: BASO% 0.4 % (0-3); HEMATOCRIT 50.4 % (37.0-47.0); HEMOGLOBIN 15.7 g/dl (12.0-16.0); IMMATURE GRANULOCYTES 1.3 % (0.0-5.0); LYMPH% 13.4 % (15-41); MEAN CELL VOLUME 91.5 fL CALC (80.0-100.0); MEAN CORPUSCULAR HGB 28.5 pG CALC (26.0-32.0); MEAN CORPUSCULAR HGB CONC 31.2 g/dL CAL (32.0-36.0); MONO% 14.8 % (2-13); NEUT# 3.88 thou/uL (2.00-7.15); NEUT% 70.1 % (42-76); RED BLOOD COUNT 5.51 mill/uL (4.20-5.60); RED CELL DISTRI WIDTH 19.5 % (11.5-15.5)
[2022-05-09 06:07] LABS: ALBUMIN 3.7 g/dL (3.2-5.0); BILIRUBIN, TOTAL 4.5 mg/dL (0.0-1.4); CREATININE 1.9 mg/dL (0.5-1.0); POTASSIUM 5.7 mmol/l (3.5-5.1); TOTAL PROTEIN 7.3 g/dL (6.3-8.2)
--- NOTE | 2022-05-09 11:43 | NUR ---
MD notified that pt. not cooperating/swallowing PO medications. Per MD, orders to "not give anything at this time." Will continue to closely monitor.
--- NOTE | 2022-05-09 13:20 | NUR ---
RN spoke with daughter Nicole to provide patient condition updates.
--- NOTE | 2022-05-09 14:00 | NUR ---
IV BUMEX, DOBUTAMINE, AND DOPAMINE DRIPS STARTED
--- NOTE | 2022-05-09 18:17 | NUR ---
Pt resting in bed with eyes closed; respirations even and unlabored with no signs of acute distress noted at this time. Call light within reach; will continue to closely monitor.
--- NOTE | 2022-05-09 20:00 | NUR ---
PATIETN RESTING IN BED AND AWAKENS SPONTANEOUS TO SPEECH. PATIENT IS ALERT X 3 AND STATES SHE CURRENTLY HAS NO PAIN. PATIENT LUNG MITCHELL ARE DIMINISHED AND BREATH SOUNDS ARE CLEAR. PATIENT HAS ACTIVE BOWEL SOUNDS IN ALL FOUR QUADS AND WAS REPORTED SHE HAS A BM TODAY X 1. PATIENT CURRENTLY HAS D-10 RUNNING IN AT 10ML/HR AND GLUCOSE ACCU CHECK AT THIS TIME IS 182. PATIENT ALSO HAS BUMEX DRIP 0.25 RUNNING IN AT 2.5ML/HR AND DOPAMINE 2.5 RUNNINGIN AT 9.5ML AND DOPUAMINE 2.0 RUNNING IN AT 6.1ML/HR. PATIENT PRESENTS WITH 3+ TO 4+ EDEMA BILATERAL LOWER LEGS AND WOUNDS NOTED ON RIGHT LEG WIHT COMPRESSION STOCKING ON AND BUTTOCKS WITH DRY DRESSING. MAYORGA IS PATENT AND DRAINING 550 AT THIS TIME YELLOW URINE O2 IS ON AT 1L AND RESEARCH ANTHROPOLOGIST SHOWING AFIB AND HR OF 76. SIDERAILS ARE UP X 3 AND WILL CONTINUE TO MONITOR.
--- NOTE | 2022-05-09 21:10 | NUR ---
SPOKE TO DR. MAI AT THIS TIME REGARDING LOKELMA ORDER AND MANAGER NON PROFIT AKIN STATING IT IS NOT FOUND IN PHARMACY. DR. MAI STATED TO HOLD MEDICATION AND HE WAS ORDERING A STAT CHEM7 TO BE DRAWN TO CHECK K LEVEL AT THIS TIME.
--- NOTE | 2022-05-09 21:15 | NUR ---
LAB IN TO DRAW LABS AT THIS TIME.
[2022-05-09 21:56] LABS: CREATININE 1.6 mg/dL (0.5-1.0); POTASSIUM 4.7 mmol/l (3.5-5.1)
--- NOTE | 2022-05-09 22:15 | NUR ---
PATIENT AWAKE AT THIS TIME REQUESTING A DRINK OF WATER. 20MLS GIVEN AT THIS ITME. PATIENT IS ALERT AND ORIENTED AND STATES SHE HAS NO NEEDS AT THIS TIME. PATIENT REPOSITIONED TO LEFT SIDE. LEGS ELEVATED MAYORGA DRAINING 300 ML OF YELLOW URINE. SIDERAILS UP X 3 CALL LIGHT WITHIN REACH DEPUTY SHERIFF COURT SERVICES SHOWING AFIB AND HR OF 86.
--- NOTE | 2022-05-09 23:13 | NUR ---
BLOOD GLUCOSE ACCU CHECK RESULTED IN 146 AT THIS TIME. D-10 STILL INFUSING AT 10ML/HR AT THIS TIME.
[2022-05-10] VITALS (90 sets, daily range): BP systolic 75–120; BP diastolic 45–83
--- NOTE | 2022-05-10 | NUR ---
PATIENT RESTING IN BED PATEINT DENKRISTAS PAIN URINARY OUTPUT IS 250 AT THIS TIME. BUSINESS SUPPORT SHOWING AFIB AND HR OF 76 AND BP IS CURRENTLY 104/70 SIDERAILS ARE UP CALL LIGHT WITHIN REACH.
--- NOTE | 2022-05-10 02:00 | NUR ---
PATIENT REMAINS RESTING IN BED WITH EYES CLOSED RESPIRATIONS EASY AND UNLABORED AT THIS TIME. 02 ON AT 1L SPO2 IS 91%. MAYORGA REMAINS PATENT AND DRAINING YELLOW URINE. SIDERAILS ARE UP CALL LIGHT WIHTIN REACH.
--- NOTE | 2022-05-10 03:00 | NUR ---
PATIENT GLUCOSE ACCU CHECK AT THIS TIME IS 132. PATIENT RESTING WITHOUT COMPLAINTS.
[2022-05-10 05:37] LABS: HEMATOCRIT 50.7 % (37.0-47.0); HEMOGLOBIN 16.2 g/dl (12.0-16.0); MEAN CORPUSCULAR HGB 27.1 pG CALC (26.0-32.0); RED BLOOD COUNT 5.97 mill/uL (4.20-5.60); RED CELL DISTRI WIDTH 18.7 % (11.5-15.5)
[2022-05-10 05:40] LABS: MEAN CELL VOLUME 84.9 fL CALC (80.0-100.0)
[2022-05-10 05:54] LABS: BILIRUBIN, TOTAL 3.3 mg/dL (0.0-1.4); CREATININE 1.4 mg/dL (0.5-1.0); MAGNESIUM 2.1 mg/dL (1.6-2.3); POTASSIUM 4.3 mmol/l (3.5-5.1)
[2022-05-10 06:03] LABS: ALBUMIN 2.7 g/dL (3.2-5.0); TOTAL PROTEIN 5.8 g/dL (6.3-8.2)
--- NOTE | 2022-05-10 06:08 | NUR ---
PATIENT AWAKE AND SITTING UP TO WATCH TV. DENIES ANY PAIN AND DRINKING GLASS OF WATER AT THIS TIME INFANT CHILDCARE PROVIDER READING AFIB AND HR IS 79. SIDERAILS ARE UP CALL LIGHT IS WITHIN REACH.
--- NOTE | 2022-05-10 09:17 | NUR ---
PATIENT REFUSING TO MOVE TO BEDSIDE RECLINER, STATES SHE HAS COMPANY AND WOULD RFATHER STAY IN BED TO VISIT WITH FAMILY.
--- NOTE | 2022-05-10 09:29 | NUR ---
PHYSICAL THERAPY ASSISTED TO PLACE PATIENT IN BEDSIDE RECLINER CHAIR
--- NOTE | 2022-05-10 21:00 | NUR ---
pt in the recliner, no complain of pain, alert x3, no sign of respiratory distress, educated t regarding deputamine and dopamine, call device within reach, will continue to monitor pt,
[2022-05-11] VITALS (50 sets, daily range): BP systolic 77–125; BP diastolic 48–92
--- NOTE | 2022-05-11 04:00 | NUR ---
PT SEEMS anxious, pt in in bedrest, alert x3, will continue to monitor
[2022-05-11 05:43] LABS: BASO% 0.3 % (0-3); EOS% 0.6 % (0-8); HEMATOCRIT 51.3 % (37.0-47.0); HEMOGLOBIN 17.3 g/dl (12.0-16.0); IMMATURE GRANULOCYTES 0.3 % (0.0-5.0); LYMPH% 17.9 % (15-41); MEAN CELL VOLUME 85.1 fL CALC (80.0-100.0); MEAN CORPUSCULAR HGB 28.7 pG CALC (26.0-32.0); MEAN CORPUSCULAR HGB CONC 33.7 g/dL CAL (32.0-36.0); MONO% 6.6 % (2-13); NEUT# 4.72 thou/uL (2.00-7.15); NEUT% 74.3 % (42-76); RED BLOOD COUNT 6.03 mill/uL (4.20-5.60); RED CELL DISTRI WIDTH 19.4 % (11.5-15.5)
[2022-05-11 06:00] LABS: ALBUMIN 2.8 g/dL (3.2-5.0); BILIRUBIN, TOTAL 3.2 mg/dL (0.0-1.4); CREATININE 1.2 mg/dL (0.5-1.0); TOTAL PROTEIN 5.8 g/dL (6.3-8.2)
[2022-05-11 06:12] LABS: POTASSIUM 3.3 mmol/l (3.5-5.1)
--- NOTE | 2022-05-11 08:00 | NUR ---
Patient sitting up in bed eating breakfast. Patient denies any pain at this time. No s/s of distress. No concerns at this time.
--- NOTE | 2022-05-11 08:50 | NUR ---
Dr Nam contacted in regards to multiple potassium orders; order received to admin 40 meq of K+ and recheck bmp at 1700;
--- NOTE | 2022-05-11 09:25 | NUR ---
O2 SAT ON 1L IS 94%
--- NOTE | 2022-05-11 09:30 | NUR ---
Patient's daughter at bedside. Daughter given an updated report about patient. Advised of needing to control patient's heart rate. Daughter verbalized understanding. No concerns at this time.
--- NOTE | 2022-05-11 10:00 | NUR ---
Patient lying in bed sleeping. Patient prefers to sleep on her right side with arm bent . Patient advised to sleep supine to prevent downstream occulusion of tubing. Patient declined. . No s/s of distress at this time. Patient denies pain
--- NOTE | 2022-05-11 12:00 | NUR ---
Patient sitting on the side of the bed eating lunch. No s/s of distress at this time.
--- NOTE | 2022-05-11 14:05 | NUR ---
Patient lying in bed sleeping. Patient seen by PT 1350. Patient was able to stand with walker for approximately 30 seconds before feeling too weak to stand. Patient denies any pain at this time. No s/s of distress.
--- NOTE | 2022-05-11 16:00 | NUR ---
Patient lying in bed. Patient is currently at 92.2 kg, weighed via derek sling. Patient denies any pain at this time. No s/s of distress.
[2022-05-11 16:59] LABS: CHLORIDE 87 mmol/l (95-108); POTASSIUM 3.1 mmol/l (3.5-5.1); SODIUM 134 mmol/l (137-146)
[2022-05-11 17:06] LABS: BUN 30 mg/dL (8-23); BUN/CREATININE RATIO 30 (12-20 (CALC)); GFR FOR AFR.AMER. > 60 ML/MIN (>=60 (CALC)); GFR OTHER RACES 55 ML/MIN (>=60 (CALC))
[2022-05-11 17:17] LABS: ANION GAP 6 (6-22 (CALC))
[2022-05-11 17:18] LABS: CARBON DIOXIDE 44 mmol/l (22-30)
--- NOTE | 2022-05-11 17:27 | NUR ---
Critical carbon dioxide level of 44 received from lab 1718. Provider notified of result, awaiting further instructions.
--- NOTE | 2022-05-11 18:09 | NUR ---
Patient sitting on the side of the bed eating dinner. Family members at bedside. Patient's family advised of patient's I/O for day shift. Patient's daughter states she will be in tomorrow morning for MD rounding. No other issues or concerns at this time. No s/s of distress.
[2022-05-12] VITALS (52 sets, daily range): BP systolic 68–121; BP diastolic 45–94
[2022-05-12 10:08] LABS: ALBUMIN 2.7 g/dL (3.2-5.0); BUN 23 mg/dL (8-23); CHLORIDE 86 mmol/l (95-108); CREATININE 0.9 mg/dL (0.5-1.0); GFR FOR AFR.AMER. > 60 ML/MIN (>=60 (CALC)); GFR OTHER RACES > 60 ML/MIN (>=60 (CALC)); POTASSIUM 3.6 mmol/l (3.5-5.1); SODIUM 134 mmol/l (137-146)
[2022-05-12 10:17] LABS: MAGNESIUM 1.3 mg/dL (1.6-2.3)
[2022-05-12 10:18] LABS: CARBON DIOXIDE 46 mmol/l (22-30)
[2022-05-12 11:51] LABS: BUN 24 mg/dL (8-23); BUN/CREATININE RATIO 27 (12-20 (CALC)); CHLORIDE 86 mmol/l (95-108); CREATININE 0.9 mg/dL (0.5-1.0); GFR FOR AFR.AMER. > 60 ML/MIN (>=60 (CALC)); GFR OTHER RACES > 60 ML/MIN (>=60 (CALC)); POTASSIUM 3.6 mmol/l (3.5-5.1); SODIUM 134 mmol/l (137-146)
[2022-05-12 11:58] LABS: ANION GAP 6 (6-22 (CALC))
[2022-05-12 12:08] LABS: CARBON DIOXIDE 46 mmol/l (22-30)
[2022-05-13] VITALS (286 sets, daily range): BP systolic 61–125; BP diastolic 31–82
--- NOTE | 2022-05-13 03:00 | NUR ---
PT BLOOD PRESSURE HAS BEEN CONTINUALLY DROPPING AND IV DOBUTAMINE IS NOW MAXED AT 20MCG/KG/MIN. PT AO, NO C/O PAIN, PATIENT IS GOING IN AND OUT OF AFIB RVR, BT IS NOT SUSTAINED. PT RESTING AT THIS TIME BUT AROUSES EASILY. WILL CONT, TO MONITOR.
--- NOTE | 2022-05-13 03:06 | NUR ---
PATIENTS METOPROLOL HELD AT 9PM DUE TO BLOOD PRESSURE/MAP <65. PT ON DOBUTAMINE GTT AT 10MCG/KG/HR AND BUMEX GTT SET RATE. PT STARTED HAVING SMALL RUNS OF AFIB RVR, CALLED TO SEE IF HE WANTED METOPROLOL GIVEN NOW WITH UNSTABLE BP. GAVE OK TO GIVE. PT VSS AT THIS TIME, NAD. WILL CONTINUE TO MONITOR.
[2022-05-13 05:46] LABS: ALBUMIN 3.1 g/dL (3.2-5.0); BUN 19 mg/dL (8-23); CHLORIDE 92 mmol/l (95-108); GFR FOR AFR.AMER. > 60 ML/MIN (>=60 (CALC)); GFR OTHER RACES 55 ML/MIN (>=60 (CALC)); POTASSIUM 3.2 mmol/l (3.5-5.1); SODIUM 133 mmol/l (137-146)
[2022-05-13 05:48] LABS: CARBON DIOXIDE 36 mmol/l (22-30)
--- NOTE | 2022-05-13 08:00 | NUR ---
Patient sititng up in bed eating breakfast. Patient denies any pain at this time. No s/s of distress.
--- NOTE | 2022-05-13 10:00 | NUR ---
Patient lying in bed. Family at bedside. Family advised that MD would like to wean patient off of dopamine. Family voiced understanding. Patient consumed 25% of meal. Family requested patient be provided pudding. Patient declined for now in order to rest. No other concerns at this time. No s/s of distress.
--- NOTE | 2022-05-13 12:00 | NUR ---
Patient lying in bed, seems to be sleeping. No s/s of distress.
--- NOTE | 2022-05-13 16:00 | NUR ---
Patient lying in bed. Family at bedside. Discussed blood pressure and patient's eating habits with family. Patient denies any pain. No other issues or concerns at this time.
--- NOTE | 2022-05-13 18:00 | NUR ---
Patient sitting up in bed eating dinner. Patient has eaten the most food for dinner. Patient denies any pain at this time. Patient's SBP was 97. No s/s of distress at this time.
--- NOTE | 2022-05-13 21:57 | NUR ---
PT FULL BED BATH AND LINEN CHANGE COMPLETED. PATIENT SKIN CLEAN DRY AND IN TACT. ABLE TO FOLLOW COMMANDS COMPLETELY AND ROLL AND HOLD SIDE RAIL DURING BED CHANGE/BATH. BP DROPS IMMEDIATELY WHEN PATIENT SITS MEGGAN HALF WAY UP IN THE BED, ORTHOSTATIC HYPOTENSION. DOPAMINE STILL GOING AT 10MCG/KG/MIN AND DOBUTAMINE STILL AT 20MCG/KG/MIN. PT IN AFIB CONTROLLED AT THIS TIME, BP MAP REMAINS ABOVE 65 UNLESS PATIENT SITS UP, JUST HAVE TO REMIND HER TO LIE BACK DOWN BECAUSE IT DROPS HER BLOOD PRESSURE, BUT WE ADJUST HER FROM SIDE TO SIDE EACH TIME TO TRY AND KEEP HER COMFORTABLE. PT NAD, NO C/O ON PAIN.
[2022-05-14] VITALS (152 sets, daily range): BP systolic 77–118; BP diastolic 41–79
--- NOTE | 2022-05-14 | NUR ---
PT RESTING, NO GTTS TITRATED SO FAR.
[2022-05-14 05:42] LABS: ALBUMIN 3.1 g/dL (3.2-5.0); BUN 14 mg/dL (8-23); CARBON DIOXIDE 31 mmol/l (22-30); CHLORIDE 95 mmol/l (95-108); CREATININE 0.8 mg/dL (0.5-1.0); GFR FOR AFR.AMER. > 60 ML/MIN (>=60 (CALC)); GFR OTHER RACES > 60 ML/MIN (>=60 (CALC)); MAGNESIUM 1.9 mg/dL (1.6-2.3); POTASSIUM 3.2 mmol/l (3.5-5.1); SODIUM 132 mmol/l (137-146)
[2022-05-14 05:55] LABS: BASO% 0.6 % (0-3); EOS% 0.4 % (0-8); HEMATOCRIT 48.3 % (37.0-47.0); HEMOGLOBIN 16.1 g/dl (12.0-16.0); IMMATURE GRANULOCYTES 0.4 % (0.0-5.0); LYMPH% 35.5 % (15-41); MEAN CELL VOLUME 83.9 fL CALC (80.0-100.0); MEAN CORPUSCULAR HGB CONC 33.3 g/dL CAL (32.0-36.0); MONO% 7.6 % (2-13); NEUT# 2.56 thou/uL (2.00-7.15); NEUT% 55.5 % (42-76); RED BLOOD COUNT 5.76 mill/uL (4.20-5.60); RED CELL DISTRI WIDTH 19.3 % (11.5-15.5)
--- NOTE | 2022-05-14 06:06 | NUR ---
PATIENT STILL RESTING. NAD. VSS.
--- NOTE | 2022-05-14 10:27 | NUR ---
RN at bedside for change of shift handoff. Pt. resting in bed with eyes closed; respirations even and unlabored with no signs of distress noted at this time. Call light within reach, pt. easily arousable; will continue to monitor.
--- NOTE | 2022-05-14 11:38 | NUR ---
RN at bedside to titrate Dopamine gtt down per MD orders by hospital protocol. Pt. continuously monitored and tolerated well at this time. Will continue to monitor.
--- NOTE | 2022-05-14 12:00 | NUR ---
RN at bedside; pt resting with eyes closed, respirations even and unlabored with no signs of distress noted at this time. Will continue to closely monitor.
--- NOTE | 2022-05-14 13:58 | NUR ---
RN at bedside; pt ate 50% of lunch, appropriate speech/conversation, resting easily with no complaints of pain. Pt denies shortness of breath and/or chest pain at this time; call light within reach. Will continue to monitor.
--- NOTE | 2022-05-14 15:15 | NUR ---
RN at bedside to titrate Dopamine gtt to 0 per MD with hospital protocol. Pt tolerated well with no signs of acute distress noted at this time; will continue to monitor closely.
--- NOTE | 2022-05-14 16:00 | NUR ---
RN at side of bed; pt resting comfortably with eyes closed, respirations even and unlabored with no signs of acute distress noted at this time. Call light within reach; will continue to closely monitor.
--- NOTE | 2022-05-14 21:00 | NUR ---
PT ASSED, alert x 3, calm in bed, no complain of pain, bed in low position, call light within reach, will continue to monitor.
[2022-05-15] VITALS (49 sets, daily range): BP systolic 76–114; BP diastolic 45–83
[2022-05-15 05:21] LABS: BASO% 0.4 % (0-3); HEMATOCRIT 47.8 % (37.0-47.0); HEMOGLOBIN 15.3 g/dl (12.0-16.0); IMMATURE GRANULOCYTES 0.8 % (0.0-5.0); LYMPH% 36.1 % (15-41); MEAN CELL VOLUME 83.3 fL CALC (80.0-100.0); MEAN CORPUSCULAR HGB 26.7 pG CALC (26.0-32.0); MONO% 6.6 % (2-13); NEUT# 2.76 thou/uL (2.00-7.15); NEUT% 55.1 % (42-76); RED BLOOD COUNT 5.74 mill/uL (4.20-5.60); RED CELL DISTRI WIDTH 18.5 % (11.5-15.5)
[2022-05-15 08:30] LABS: ALBUMIN 3.3 g/dL (3.2-5.0); ALKALINE PHOSPHATASE 172 u/l (38-126); ANION GAP 12 (6-22 (CALC)); BILIRUBIN, TOTAL 3.8 mg/dL (0.0-1.4); BUN 13 mg/dL (8-23); BUN/CREATININE RATIO 14 (12-20 (CALC)); CARBON DIOXIDE 31 mmol/l (22-30); CHLORIDE 94 mmol/l (95-108); CREATININE 0.9 mg/dL (0.5-1.0); GFR FOR AFR.AMER. > 60 ML/MIN (>=60 (CALC)); GFR OTHER RACES > 60 ML/MIN (>=60 (CALC)); MAGNESIUM 1.9 mg/dL (1.6-2.3); SGOT/AST 162 u/l (9-36); SODIUM 133 mmol/l (137-146); TOTAL PROTEIN 6.7 g/dL (6.3-8.2)
--- NOTE | 2022-05-15 10:50 | NUR ---
report received from Rosibel Casas RN; care assumed
--- NOTE | 2022-05-15 12:11 | NUR ---
pt noted in recliner; no acute distress noted; assessment completed at this time; appears drowsy; denies pain; no n/v noted; resp unlabored; crackles noted to bases; skin color wnl; ra; hr irreg; wk pedal pulses; edema noted; afib on monitor; abd soft with bs present; pt reports bm; tea colored urine noted; #22 saline locked to lw; #22 patent to rfa with dobutamine gtt infusing at 20mcg/kg/min; bilat le noted with compression wraps; plan of care/ meds explained; call light within reach; will continue to monitor
--- NOTE | 2022-05-15 13:58 | NUR ---
PAUL Peck present at bedside
--- NOTE | 2022-05-15 14:55 | NUR ---
information technology administrator Alyssa present at bedside
--- NOTE | 2022-05-15 16:00 | NUR ---
awake in bed; afib on monitor; iv intact; dobutamine gtt titrated; ayoub to gravity; will continue to monitor
--- NOTE | 2022-05-15 18:02 | NUR ---
awake in bed; offers no complaints; ayoub to gravity; ra; offers no complaints; repositioned in bed; call light within reach
--- NOTE | 2022-05-15 19:59 | NUR ---
assessed pt ,alert x3, weakness noted, anxious, hemodynamic stable, call light withing reach, bed in low position, answer all the question she may had, will continue to monitor.
[2022-05-16] VITALS (28 sets, daily range): BP systolic 76–103; BP diastolic 50–74
--- NOTE | 2022-05-16 04:00 | NUR ---
pt is awake , up in the chair, no complain of pain, pt seems anxious, call light within reach, will continue to monitor pt.
[2022-05-16 06:32] LABS: BASO% 0.5 % (0-3); EOS% 1.1 % (0-8); HEMATOCRIT 44.8 % (37.0-47.0); HEMOGLOBIN 14.9 g/dl (12.0-16.0); IMMATURE GRANULOCYTES 0.3 % (0.0-5.0); MEAN CELL VOLUME 84.4 fL CALC (80.0-100.0); MEAN CORPUSCULAR HGB 28.1 pG CALC (26.0-32.0); MEAN CORPUSCULAR HGB CONC 33.3 g/dL CAL (32.0-36.0); MONO% 7.1 % (2-13); NEUT# 3.99 thou/uL (2.00-7.15); RED BLOOD COUNT 5.31 mill/uL (4.20-5.60); RED CELL DISTRI WIDTH 18.8 % (11.5-15.5)
[2022-05-16 06:48] LABS: ANION GAP 10 (6-22 (CALC)); BUN 14 mg/dL (8-23); BUN/CREATININE RATIO 15 (12-20 (CALC)); CARBON DIOXIDE 30 mmol/l (22-30); CHLORIDE 96 mmol/l (95-108); GFR FOR AFR.AMER. > 60 ML/MIN (>=60 (CALC)); GFR OTHER RACES 55 ML/MIN (>=60 (CALC)); MAGNESIUM 2.1 mg/dL (1.6-2.3); POTASSIUM 3.8 mmol/l (3.5-5.1); SODIUM 132 mmol/l (137-146)
[2022-05-17] VITALS (17 sets, daily range): BP systolic 73–107; BP diastolic 48–78
--- NOTE | 2022-05-17 05:26 | NUR ---
pt sitting at bed, MAP of 63, no complain of pain, call light within reach, bed in low position, nt drip running, will continue to monitor
--- NOTE | 2022-05-17 07:00 | NUR ---
Report received from manufacturing supervisor 2nd shift - pt up to chair in stable condition - denies any pain or needs at this time - pt on RA satting 92 - call light and personal belongings in reach - will monitor
[2022-05-17 07:29] LABS: HEMATOCRIT 50.7 % (37.0-47.0); HEMOGLOBIN 16.7 g/dl (12.0-16.0); MEAN CELL VOLUME 85.1 fL CALC (80.0-100.0); MEAN CORPUSCULAR HGB CONC 32.9 g/dL CAL (32.0-36.0); RED BLOOD COUNT 5.96 mill/uL (4.20-5.60); RED CELL DISTRI WIDTH 19.5 % (11.5-15.5)
--- NOTE | 2022-05-17 08:09 | NUR ---
Dr Trinidad present at bedside to assess and discuss plan of care with spouse
--- NOTE | 2022-05-17 08:51 | NUR ---
Dr Trinidad present at bedside to assess pt and discuss plan of care; daughter present at bedside
--- NOTE | 2022-05-17 09:30 | NUR ---
Pt up to [facility] - had small bm - worked with PT - will be transfering to [facility] at some time today - satting 97% on RA - denies any pain or discomfort - no s/s distress - call light in reach
--- NOTE | 2022-05-17 09:31 | NUR ---
RA O2 SAT 95%
[2022-05-17 10:05] LABS: CREATININE 1.1 mg/dL (0.5-1.0); MAGNESIUM 2.2 mg/dL (1.6-2.3); POTASSIUM 4.8 mmol/l (3.5-5.1)
--- NOTE | 2022-05-17 11:11 | NUR ---
Pt c/o nausea - zofran given per MD order - also gave a gingerale to help ease her stomach - pt on RA still satting 98% - denies pain - no s/s distress - will be transferring patient soon to med surg per MD order - call light and personal belongings in reach - will continue to monitor
--- NOTE | 2022-05-17 11:50 | NUR ---
PT RESTING IN HIGH FOWLERS POSITION. PT A/OX3 ASSESSMENT AND VS COMPLETED. HEART RHYTHM ON TELE. RESPIRATIONS ON ROOM AIR. IV SITE NOTED TO HAND .S.L PT STATED BM TODAY. PT DENIES ADDITIONAL NEEDS OTHER THAN USE OF CALL LIGHT ALL SAFETY PRECAUTIONS IN PLACE CALL LIGHT INREACH.
--- NOTE | 2022-05-17 11:55 | NUR ---
Patient arrived to 278 from ICU, pt in bed comfortably. Breath sounds clear on RA. Pt has a clean dressing to RLE. IV to left hand, intact. pt was insturcted on use of call light, bed in lowest position.
--- NOTE | 2022-05-17 12:00 | NUR ---
Patient transfered to [facility] in stable condition via wheelchair with all personal belongings - Family notified - no s/s distress - pt on RA satting 97% - report given to Marta and no questions or concerns at this time
--- NOTE | 2022-05-17 15:56 | NUR ---
PT RESTING IN HIGH FOWLERS POSITION FAMILY AT BEDSIDE PT TO RECIEVE LASIX LATER HELD AT THE MOMENT TO REASSESS BLOOD PRESSURE.
--- NOTE | 2022-05-17 16:00 | NUR ---
PT IS AWAKE UP IN CHAIR WITH FAMILY IN ROOM. PT HAS CALL LIGHT WITHIN REACH, TOILETING OFFERED.
--- NOTE | 2022-05-17 19:30 | NUR ---
PT DOES NOT HAVE AN IV IN PLACE, SIMULATION TECH IS AT BEDISE PLACING ONE.
--- NOTE | 2022-05-17 20:00 | NUR ---
RECEIVED REPORT FROM DAY SHIFT VENEER MEASURER. PT IS RESTING ON RECLINER, AWAKE. FAMILY AT BEDSIDE. PT IS A&OX3 AND ABLE TO COMMUNICATE NEEDS. PT DENIES ANY DISCOMFORT OR PAIN AT THIS TIME. PT IS ON TELE, MONITORED BY ED. PT IS ON ROOM AIR, BREATHING IS EVEN AND UNLABORED. CALL LIGHT AND BEDSIDE TABLE WITHIN REACH.
[2022-05-18] VITALS: BP 102/67
--- NOTE | 2022-05-18 | NUR ---
PT IS RESTIN ON RECLINER, WITH EYES CLOSED. IV IS PATENT AND FLUSHES WELL. NO SIGNS OF PAIN OR DISTRESS NOTED AT THIS TIME. CALL LIGHT AND BEDSIDE TABLE WITHIN REACH.
--- NOTE | 2022-05-18 03:50 | NUR ---
PT AWAKE SITTING ON THE SIDE OF HER BED. PT HAD A BOWEL MOVEMENT, CLEANED HER UP AND CHANGED HER LINENS, FIXED HER UP BACK IN BED. PT A&OX3 AND ABLE TO COMMUNICATE NEEDS. IV IS PATENT AND FLUSHES WELL. TELE MONITOR IN PLACE. CALL LIGHT AND BESIDE TABLE WITHIN REACH.
[2022-05-18 06:57] VITALS: BP 123/69
[2022-05-18 07:28] LABS: BASO% 0.6 % (0-3); EOS% 0.5 % (0-8); HEMATOCRIT 49.5 % (37.0-47.0); HEMOGLOBIN 16.2 g/dl (12.0-16.0); IMMATURE GRANULOCYTES 0.3 % (0.0-5.0); LYMPH% 36.7 % (15-41); MEAN CELL VOLUME 83.8 fL CALC (80.0-100.0); MEAN CORPUSCULAR HGB 27.4 pG CALC (26.0-32.0); MEAN CORPUSCULAR HGB CONC 32.7 g/dL CAL (32.0-36.0); MONO% 5.8 % (2-13); NEUT# 4.36 thou/uL (2.00-7.15); NEUT% 56.1 % (42-76); RED BLOOD COUNT 5.91 mill/uL (4.20-5.60); RED CELL DISTRI WIDTH 19.3 % (11.5-15.5)
[2022-05-18 07:54] LABS: BILIRUBIN, TOTAL 4.2 mg/dL (0.0-1.4); CREATININE 1.4 mg/dL (0.5-1.0); MAGNESIUM 2.3 mg/dL (1.6-2.3); TOTAL PROTEIN 7.8 g/dL (6.3-8.2)
--- NOTE | 2022-05-18 08:00 | NUR ---
GOT REPORT FROM PAD TUFTER NURSE. PATIENT IS SITTING ON THE SIDE OF BED EATING BREAKFAST. PATIENT DENIES ANY DISTRESS OR DISCOMFORT. PATIENT STATES THAT SHE BELIEVES SHE WILL BE GOING TO REHAB TODAY. ADVISED I WOULD FOLLOW [facility] WITH CASE MANAGEMENT FOR HER AND KEEP HER UPDATED. CALL LIGHT AND BEDSIDE TABLE WITH IN REACH. FALL PRECAUTIONS IN PLACE. ADVISED TO CALL IF SHE NEEDS ANYTHING. PATIENT VERBALIZED UNDERSTANDING.
[2022-05-18 08:15] LABS: ALBUMIN 4.2 g/dL (3.2-5.0); POTASSIUM 5.2 mmol/l (3.5-5.1)
[2022-05-18 10:55] VITALS: BP 91/60
[2022-05-18 10:56] VITALS: BP 91/60
--- NOTE | 2022-05-18 12:00 | NUR ---
PATIENT IN BED RESTING WITH FAMILY AT BEDSIDE. SO SXS OF DISTRESS OR DISCOMFORT. CALL LIGHT AND BEDSIDE TABLE STILL WITH IN REACH AND ADVISED PATIENT TO CALL IF NEEDING ANYTHING. PATIENT VERBALIZED UNDERSTANDING.
[2022-05-18 18:51] VITALS: BP 79/58
[2022-05-18 19:56] VITALS: BP 102/67
--- NOTE | 2022-05-18 20:06 | NUR ---
PATIENT LEFT THE FACILITY VIA [facility]. CELLPHONE, IPAD WELL BELONGING GIVEN TO THE PATIENT AND WAS PUT ON HER SUIT CASE. PATIENT IS AWARE WELL THE TRANSPORTED. ATTEMPTED TO GIVE REPORT TO [facility] RECEIVING NURSE NOT AVAILABLE TO GET REPORT. PHONE NUMBER OF THE FACILITY WAS GIVEN TO THE NURSE AND INSTRUCTED TO GIVE US A CALL WHEN SHES READY FOR REPORT.
== END 2022-05-18 20:03 | DRG 291 ==
LOC: ED 13:36 → ED-I 15:20 → ED 16:06 → MS2 16:07 → ICU 05-09 03:02 → MS2 05-17 11:50
PROVIDERS: Emergency Medicine; Internal Medicine; Internal Medicine Nephrology; Nurse Practitioner Family; ADMIT Internal Medicine; ATTEND Internal Medicine
PROC: 0T9B70Z Drainage of Bladder with Drainage Device, Via Natural or Artificial Opening (ICD-10-PCS; principal; 2022-05-09)
PROC: 3E033XZ Introduction of Vasopressor into Peripheral Vein, Percutaneous Approach (ICD-10-PCS; 2022-05-09)
DX: I13.0 Hypertensive heart and chronic kidney disease with heart failure and stage 1 through stage 4 chronic kidney disease, or unspecified chronic kidney disease (principal); I50.23 Acute on chronic systolic (congestive) heart failure; N17.0 Acute kidney failure with tubular necrosis; K72.00 Acute and subacute hepatic failure without coma; R57.0 Cardiogenic shock; L03.115 Cellulitis of right lower limb; I48.20 Chronic atrial fibrillation, unspecified; L97.819 Non-pressure chronic ulcer of other part of right lower leg with unspecified severity; E87.1 Hypo-osmolality and hyponatremia; E87.3 Alkalosis; E11.22 Type 2 diabetes mellitus with diabetic chronic kidney disease; E11.649 Type 2 diabetes mellitus with hypoglycemia without coma; N18.31 Chronic kidney disease, stage 3a; T50.1X5A Adverse effect of loop [high-ceiling] diuretics, initial encounter; I95.9 Hypotension, unspecified; E87.6 Hypokalemia; E87.5 Hyperkalemia; R33.9 Retention of urine, unspecified; E86.0 Dehydration; E78.00 Pure hypercholesterolemia, unspecified; M17.11 Unilateral primary osteoarthritis, right knee; M54.50 Low back pain, unspecified; Z79.01 Long term (current) use of anticoagulants; Z95.810 Presence of automatic (implantable) cardiac defibrillator; Z87.01 Personal history of pneumonia (recurrent); Z86.73 Personal history of transient ischemic attack (TIA), and cerebral infarction without residual deficits; Z20.822 Contact with and (suspected) exposure to COVID-19
CPT/HCPCS: J1250; J3475; P9047